=== PATIENT | female | born 1940 | race Caucasian/White ===

== ENCOUNTER 2017-09-27 17:21 | Inpatient (IN) | payer MEDICARE, OTHER ==
[2017-09-27] MEDS ORDERED: FENTANYL CITRATE INJ/PF 100 MCG/2 ML AMPUL IV ONE ×2 (17:46→18:57)
--- NOTE | 2017-09-27 17:46 | ER Document Report ---
ED Hip Pain/Injury - General TRAVEL OUTSIDE OF THE [place] IN LAST 30 DAYS: No <SHELIA JACKSON - Last Filed: 09/27/17 17:52> - General Mode of Arrival: Medic Information source: Patient, Emergency Med Personnel, [facility] Records <FOZIA BRADSHAW - Last Filed: 09/27/17 19:53> - General Chief Complaint: Hip Injury Stated Complaint: LEFT HIP PAIN Time Seen by Provider: 09/27/17 17:34 Notes: 77-year-old female patient was brought emergently by EMS after suffering a fall at home. She reports she was in her kitchen when she lost her balance and fell backwards landing on her left side injuring her left hip, her left elbow, and striking back of head. There is no loss of consciousness. There is no pain in the head or the neck. (AUGUSTINEFOZIA Oshea) - Related Data Allergies/Adverse Reactions: acetaminophen [From Tylox] Adverse Reaction (Verified 11/12/10 10:26) GI upset oxycodone HCl [From Tylox] Adverse Reaction (Verified 11/12/10 10:26) GI upset bandaids Allergy (Severe, Uncoded 12/11/10 12:30) skin rash adhesives Allergy (Intermediate, Uncoded 01/15/11 09:23) Past Medical History - Past Medical History Cardiac Medical History: Reports: Hx Hypertension - ON MEDS Pulmonary Medical History: Reports: Hx Pneumonia - hx of Musculoskeletal Medical History: 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 Past Surgical History: Reports: Hx Cholecystectomy, Hx Tubal Ligation - Immunizations Hx Diphtheria, Pertussis, Tetanus Vaccination: No <SHELIA JACKSON - Last Filed: 09/27/17 17:52> - General Information source: Patient, Emergency Med Personnel, [facility] Records - Social History Smoking Status: Never Smoker Cigarette use (# per day): No Chew tobacco use (# tins/day): No Smoking Education Provided: No Frequency of alcohol use: None Drug Abuse: None Occupation: Retired Lives with: Family Family History: Reviewed & Not Pertinent - Past Medical History Cardiac Medical History: Denies: Hx Heart Attack Neurological Medical History: Reports: Other - Essential tremor Endocrine Medical History: Reports: Hx Diabetes Mellitus Type 2 Renal/ Medical History: Reports: None GI Medical History: Reports: None Psychiatric Medical History: Reports: None Traumatic Medical History: Reports: Hx Fractures - Right femur Past Surgical History: Reports: Hx Orthopedic Surgery - Right femur ORIF <FOZIA BRADSHAW - Last Filed: 09/27/17 19:53> Review of Systems - Review of Systems Constitutional: No symptoms reported EENT: No symptoms reported Cardiovascular: No symptoms reported Respiratory: No symptoms reported Gastrointestinal: No symptoms reported Genitourinary: No symptoms reported Female Genitourinary: Post menopausal Musculoskeletal: Joint pain Skin: No symptoms reported Hematologic/Lymphatic: No symptoms reported Neurological/Psychological: Tremor <FOZIA BRADSHAW - Last Filed: 09/27/17 19:53> Physical Exam <MANUELROSALEESHELIA - Last Filed: 09/27/17 17:52> - Vital signs Interpretation: Normal - General General appearance: Alert - HEENT Head: Normocephalic, Atraumatic Eyes: Normal Pupils: PERRL Mouth/Lips: Other - Edentulous Neck: Normal - Nontender, Supple - Respiratory Respiratory status: No respiratory distress Breath sounds: Normal - Cardiovascular Rhythm: Regular Heart sounds: Normal auscultation Murmur: No - Abdominal Inspection: Normal Bowel sounds: Normal Tenderness: Nontender - Back Back: Normal - Extremities General upper extremity: Other - The left elbow has tenderness to the radial head. General lower extremity: Other - The left hip region is very tender to palpate. Patient is in a pelvic sling in the lower extremities are somewhat immobilized. - Neurological Neuro grossly intact: Yes - Psychological Associated symptoms: Normal affect, Normal mood - Skin Skin Temperature: Warm Skin Moisture: Dry Skin Color: Normal <FOZIA BRADSHAW - Last Filed: 09/27/17 19:53> - Vital signs Vitals: Resp Pulse Ox 11 L 93 09/27/17 17:42 09/27/17 17:42 - Neurological Notes: Patient has mild essential tremor (FOZIA BRADSHAW) Course <MANUELROSALEESHELIA - Last Filed: 09/27/17 17:52> - Diagnostic Test Radiology reviewed: Image reviewed, Reports reviewed - Left elbow show small joint effusion without fracture. Left hip shows low intertrochanteric fracture. - Consults Dr. Fermin Consulted provider: will see as inpatient Dr Cardenas Time consulted: 19:35 Consulted provider: will come to ER <FOZIA BRADSHAW - Last Filed: 09/27/17 19:53> - Re-evaluation Re-evalutation: 09/27/17 19:52 Patient does not seem to be getting a lot of pain relief with the dosing of fentanyl, so we will change to small doses of Dilaudid. (FOZIA BRADSHAW) - Vital Signs Vital signs: Temp Pulse Resp BP Pulse Ox 97.9 F 15 170/63 H 99 09/27/17 17:43 09/27/17 19:01 09/27/17 19:01 09/27/17 19:01 Discharge <SHELIA JACKSON - Last Filed: 09/27/17 17:52> - Discharge Admitting Provider: Hospitalist Unit Admitted: Telemetry <FOZIA BRADSHAW - Last Filed: 09/27/17 19:53> - Discharge Clinical Impression: Hip fracture Qualifiers: Encounter type: initial encounter Fracture type: closed Laterality: left Qualified Code(s): S72.002A - Fracture of unspecified part of neck of left femur , initial encounter for closed fracture Sprain of elbow, left Qualifiers: Encounter type: initial encounter Qualified Code(s): S53.402A - Unspecified sprain of left elbow, initial encounter Condition: Stable Disposition: ADMITTED INPATIENT Scribe Attestation: 09/27/17 18:35 I personally performed the services described in the documentation, reviewed and edited the documentation which was dictated to the scribe in my presence, and it accurately records my words and actions. (FOZIA BRADSHAW)
--- NOTE | 2017-09-27 19:04 | RADIOLOGY REPORT (SQ) ---
EXAM DESCRIPTION: ELBOW LEFT OVER 2 VIEWS COMPLETED DATE/TIME: 09/27/2017 6:55 pm REASON FOR STUDY: Fall, left hip and left elbow pain COMPARISON: None. NUMBER OF VIEWS: Four views. TECHNIQUE: AP, lateral, and both oblique radiographic images acquired of the left elbow. LIMITATIONS: None. FINDINGS: MINERALIZATION: Osteopenia. BONES: No acute fracture or dislocation. No worrisome bone lesions. JOINT: There is a small joint effusion. SOFT TISSUES: No soft tissue swelling. No foreign body. OTHER: No other significant finding. IMPRESSION: Small joint effusion. No fracture is seen. TECHNICAL DOCUMENTATION: JOB ID: [id number] [employer]- All Rights Reserved Reading location - IP/workstation name: [email or web address]
--- NOTE | 2017-09-27 19:12 | RADIOLOGY REPORT (SQ) ---
EXAM DESCRIPTION: HIP LEFT AP/LATERAL COMPLETED DATE/TIME: 09/27/2017 6:55 pm REASON FOR STUDY: Fall, left hip and left elbow pain COMPARISON: None. NUMBER OF VIEWS: Two views. TECHNIQUE: AP pelvis and additional frog-leg view of the left hip. LIMITATIONS: None. FINDINGS: MINERALIZATION: Normal. LEFT HIP: Low intertrochanteric fracture of the left femur. RIGHT HIP: No fracture or dislocation. No worrisome bone lesions. PUBIS AND ISCHIUM: No fracture. PELVIS: No fracture. SACRUM: No fracture or dislocation. No worrisome bone lesions. LOWER LUMBAR SPINE: No fracture or dislocation. No worrisome bone lesions. No significant disc disea se. SOFT TISSUES: No findings. OTHER: No other significant finding. IMPRESSION: Left hip fracture. TECHNICAL DOCUMENTATION: JOB ID: [id number] [employer]- All Rights Reserved Reading location - IP/workstation name: [email or web address]
[2017-09-27] MEDS ORDERED: IPRATROPIUM/ALBUTEROL 0.5-2.5 MG/3 ML AMPUL NEB PRN (19:39)
[2017-09-27] MEDS ORDERED: DEXTROSE 50%-WATER 25 GM/50 ML DISP.SYRIN IV PRN ×2 (19:39)
[2017-09-27] MEDS ORDERED: DEXTROSE 40% GEL 15 GM TUBE PO PRN ×2 (19:39)
[2017-09-27] MEDS ORDERED: MAG HYDROX/AL HYDROX/SIMETH SUSP 30 ML UDCUP PO PRN (19:39)
[2017-09-27] MEDS ORDERED: GLUCAGON,HUMAN RECOMB 1 MG INJ IM PRN (19:39)
[2017-09-27] MEDS ORDERED: ACETAMINOPHEN 325 MG TABLET PO PRN (19:39)
[2017-09-27] MEDS ORDERED: FENTANYL CITRATE INJ/PF 100 MCG/2 ML AMPUL IV PRN (19:39)
[2017-09-27] MEDS ORDERED: MAGNESIUM HYDROXIDE SUSP 30 ML UDCUP PO PRN (19:39)
[2017-09-27] MEDS ORDERED: INSULIN LISPRO 100 UNIT/ML 3 ML VIAL SUBCUT PRN (19:39)
[2017-09-27] MEDS ORDERED: NORMAL SALINE 1000 ML 1,000 ML IV SCH (19:45)
[2017-09-27] MEDS ORDERED: HYDROMORPHONE HCL INJ/PF 2 MG/ML AMPULE IV ONE (19:51)
[2017-09-27] MEDS ORDERED: HYDRALAZINE HCL INJ/PF 20 MG/1 ML SDV IV PRN (19:57)
[2017-09-27 20:05] LABS: APPEARANCE,URINE CLEAR; BILIRUBIN,URINE NEGATIVE (NEGATIVE); COLOR,URINE YELLOW; GLUCOSE, URINE NEGATIVE (NEGATIVE); KETONES,URINE NEGATIVE (NEGATIVE); LEUKOCYTE ESTERASE,URINE NEGATIVE (NEGATIVE); NITRITE,URINE NEGATIVE (NEGATIVE); PROTEIN,URINE NEGATIVE (NEGATIVE); URINE SPECIFIC GRAVITY 1.015
[2017-09-27] MEDS ORDERED: LOSARTAN POTASSIUM 50 MG TABLET PO SCH (20:30)
[2017-09-27 20:45] LABS: HEMATOCRIT 39.5 % (36.0-47.0); HEMOGLOBIN 13.2 g/dL (12.0-15.5); MEAN CORPUSCULAR HEMOGLOBIN 32.3 pg (27.0-33.4); MEAN CORPUSCULAR HGB CONC 33.5 g/dL (32.0-36.0); MEAN CORPUSCULAR VOLUME 97 fl (80-97); PLATELET COUNT 270 10^3/uL (150-450); RED BLOOD COUNT 4.09 10^6/uL (3.72-5.28); RED CELL DISTRIBUTION WIDTH 14.3 % (11.5-14.0); WHITE BLOOD COUNT 20.1 10^3/uL (4.0-10.5)
[2017-09-27 20:47] LABS: INTERNATIONAL RATION (INR) 0.95; PROTHROMBIN TIME 13.1 SEC (11.4-15.4)
[2017-09-27 20:57] LABS: ALANINE AMINOTRANSFERASE 27 U/L (9-52); ALBUMIN 3.3 g/dL (3.5-5.0); ALKALINE PHOSPHATASE 160 U/L (38-126); ANION GAP 12 (5-19); ASPARTATE AMINO TRANSFERASE 29 U/L (14-36); BILIRUBIN,DIRECT 0.4 mg/dL (0.0-0.4); BILIRUBIN,TOTAL 0.4 mg/dL (0.2-1.3); BLOOD UREA NITROGEN 16 mg/dL (7-20); CALCIUM 8.7 mg/dL (8.4-10.2); CARBON DIOXIDE 25 mmol/L (22-30); CHLORIDE 101 mmol/L (98-107); CREATINE KINASE 50 U/L (30-135); GLUCOSE 122 mg/dL (75-110); POTASSIUM 4.9 mmol/L (3.6-5.0); SODIUM 138.4 mmol/L (137-145); TOTAL PROTEIN 6.5 g/dL (6.3-8.2)
[2017-09-27 21:02] LABS: ABSOLUTE MONOCYTES # (MANUAL) 0.8 10^3/uL (0.1-1.4); ABSOLUTE NEUTROPHILS# (MANUAL) 18.3 10^3/uL (1.7-8.2); BASOPHILS % (MANUAL) 0 % (0-2); EOSINOPHILS % (MANUAL) 0 % (0-6); LYMPHOCYTES % (MANUAL) 5 % (13-45); MONOCYTES % (MANUAL) 4 % (3-13); SEGMENTED NEUTROPHILS % (MAN) 91 % (42-78); TOTAL CELLS COUNTED 100
[2017-09-27 21:04] LABS: TEAR DROP CELLS SLIGHT
[2017-09-27 21:05] LABS: ANISOCYTOSIS SLIGHT; OVALOCYTES SLIGHT; PLATELET COMMENT ADEQUATE; POIKILOCYTOSIS SLIGHT
[2017-09-27] MEDS: INSULIN GLARGINE,HUM.REC.ANLOG 300 UNIT/3 ML INSULN.PEN SUBCUT SCH (22:29)
[2017-09-27] MEDS: METOPROLOL TARTRATE 50 MG TABLET PO SCH (22:30)
[2017-09-27] MEDS: HEPARIN SOD (PORCINE) 5,000 UNIT/ML 1 ML SYRINGE SUBCUT SCH (22:30)
[2017-09-28] MEDS: KETOROLAC TROMETHAMINE INJ/PF 30 MG/1 ML SDV IV PRN ×2 (02:40→08:11)
[2017-09-28] MEDS: HEPARIN SOD (PORCINE) 5,000 UNIT/ML 1 ML SYRINGE SUBCUT SCH ×2 (05:39→13:25)
[2017-09-28] MEDS: LANSOPRAZOLE 15 MG TAB.RAP.DR PO SCH (05:39)
--- NOTE | 2017-09-28 07:24 | PDOC H&P ---
History of Present Illness Admission Date/PCP: 09/27/17 19:49 OG CHAMPION MD Patient complains of: Left hip pain History of Present Illness: NICKI ROWE is a 77 year old female with a past medical history of diabetes, essential tremor, hypertension and GERD. She presents after a loss of balance in the kitchen with fall upon her left side resulting in pain. She admits striking her head but no loss of consciousness, denies precipitating factors, new medications and otherwise feels well. In the emergency room she is found to have a left-sided hip fracture, no evidence of head contusion or concussion. She is referred to the hospitalist for admission. Patient has some gait instability at baseline requiring a walker after a remote right sided hip fracture complicated by MRSA. She denies shortness of breath or chest pain with activity, she has moderate risk for surgery however I do not find any modifiable risk factors preventing immediate OR intervention. Past Medical History Cardiac Medical History: Reports: Hypertension - ON MEDS Denies: Coronary Artery Disease, Myocardial Infarction Pulmonary Medical History: Reports: Pneumonia - hx of Denies: Asthma, Bronchitis, Chronic Obstructive Pulmonary Disease (COPD), Tuberculosis Neurological Medical History: Reports: Other - Essential tremor Denies: Seizures Endocrine Medical History: Reports: Diabetes Mellitus Type 2 Renal/ Medical History: Reports: None GI Medical History: Reports: None Denies: Hepatitis, Hiatal Hernia Musculoskeltal Medical History: Reports: Arthritis - lt knee Psychiatric Medical History: Reports: None Hematology: Denies: Anemia, Sickle Cell Disease Past Surgical History Past Surgical History: Reports: Cholecystectomy, Orthopedic Surgery - Right femur ORIF, Tubal Ligation Denies: Amputation, Hysterectomy, Mastectomy, Pacemaker Social History Information Source: Patient, [facility] Records Lives with: Family Smoking Status: Never Smoker Frequency of Alcohol Use: None Hx Recreational Drug Use: No Drugs: None Hx Prescription Drug Abuse: Yes - Advance Directive Resuscitation Status: Full Code Family History Family History: Arthritis Parental Family History Reviewed: Yes Children Family History Reviewed: Yes Sibling(s) Family History Reviewed.: Yes Medication/Allergy Home Medications: Insulin Glargine,Hum.rec.anlog [Lantus Insulin 100 Unit/1 ml 10 ml] See Protocol SQ DAILYP PRN 09/27/17 Losartan Potassium [Cozaar 50 mg Tablet] 50 mg PO DAILY 09/27/17 Metoprolol Succinate [Toprol Xl 25 mg Tab.sr] 25 mg PO DAILY 09/27/17 Omeprazole 40 mg PO DAILY 09/27/17 Primidone [Mysoline 50 mg Tablet] 50 mg PO BID 09/27/17 Tramadol HCl [Ultram 50 mg Tablet] 50 mg PO BID 09/27/17 Allergies/Adverse Reactions: acetaminophen [From Tylox] Adverse Reaction (Verified 11/12/10 10:26) GI upset oxycodone HCl [From Tylox] Adverse Reaction (Verified 11/12/10 10:26) GI upset bandaids Allergy (Severe, Uncoded 12/11/10 12:30) skin rash adhesives Allergy (Intermediate, Uncoded 01/15/11 09:23) Review of Systems Constitutional: ABSENT: chills, fever(s), headache(s), weight gain, weight loss Eyes: ABSENT: visual disturbances Ears: ABSENT: hearing changes Cardiovascular: ABSENT: chest pain, dyspnea on exertion, edema, orthropnea, palpitations Respiratory: ABSENT: cough, hemoptysis Gastrointestinal: ABSENT: abdominal pain, constipation, diarrhea, hematemesis, hematochezia, nausea, vomiting Genitourinary: ABSENT: dysuria, hematuria Musculoskeletal: ABSENT: joint swelling Integumentary: ABSENT: rash, wounds Neurological: ABSENT: abnormal gait, abnormal speech, confusion, dizziness, focal weakness, syncope Psychiatric: ABSENT: anxiety, depression, homidical ideation, suicidal ideation Endocrine: ABSENT: cold intolerance, heat intolerance, polydipsia, polyuria Hematologic/Lymphatic: ABSENT: easy bleeding, easy bruising Physical Exam Vital Signs: Temp Pulse Resp BP Pulse Ox 98.9 F 7 L 143/66 H 100 09/28/17 05:01 09/28/17 05:01 09/28/17 05:01 09/28/17 05:01 Intake & Output 09/26/17 09/27/17 09/28/17 11:59 11:59 11:59 Output Total 150 Balance -150 General appearance: PRESENT: cooperative, mild distress, well-developed, well- nourished Head exam: PRESENT: atraumatic, normocephalic Eye exam: PRESENT: conjunctiva pink, EOMI, PERRLA. ABSENT: scleral icterus Ear exam: PRESENT: normal external ear exam Mouth exam: PRESENT: moist, tongue midline Neck exam: ABSENT: carotid bruit, JVD, lymphadenopathy, thyromegaly Respiratory exam: PRESENT: clear to auscultation ramila. ABSENT: rales, rhonchi, wheezes Cardiovascular exam: PRESENT: RRR. ABSENT: diastolic murmur, rubs, systolic murmur Pulses: PRESENT: normal dorsalis pedis pul Vascular exam: PRESENT: normal capillary refill GI/Abdominal exam: PRESENT: normal bowel sounds, soft. ABSENT: distended, guarding, mass, organolmegaly, rebound, tenderness Rectal exam: PRESENT: deferred Extremities exam: PRESENT: joint swelling, tenderness. ABSENT: calf tenderness , clubbing, full ROM, pedal edema Musculoskeletal exam: PRESENT: tenderness - Left hip pain with flexion. ABSENT : full ROM Neurological exam: PRESENT: alert, awake, oriented to person, oriented to place , oriented to time, oriented to situation, CN II-XII grossly intact. ABSENT: motor sensory deficit Psychiatric exam: PRESENT: appropriate affect, normal mood. ABSENT: homicidal ideation, suicidal ideation Skin exam: PRESENT: dry, intact, warm. ABSENT: cyanosis, rash Results Laboratory Results: 09/27/17 20:17 09/27/17 20:17 09/27/17 09/27/17 20:17 20:17 WBC 20.1 H RBC 4.09 Hgb 13.2 Hct 39.5 MCV 97 MCH 32.3 MCHC 33.5 RDW 14.3 H Plt Count 270 Seg Neutrophils % Not Reportable Lymphocytes % Not Reportable Monocytes % Not Reportable Eosinophils % Not Reportable Basophils % Not Reportable Absolute Neutrophils Not Reportable Absolute Lymphocytes Not Reportable Absolute Monocytes Not Reportable Absolute Eosinophils Not Reportable Absolute Basophils Not Reportable Sodium 138.4 Potassium 4.9 Chloride 101 Carbon Dioxide 25 Anion Gap 12 BUN 16 Creatinine 0.96 Est GFR ( Amer) > 60 Est GFR (Non-Af Amer) 57 L Glucose 122 H Calcium 8.7 Magnesium 1.9 Total Bilirubin 0.4 AST 29 ALT 27 Alkaline Phosphatase 160 H Total Protein 6.5 Albumin 3.3 L 09/27/17 09/27/17 20:17 20:17 Creatine Kinase 50 Troponin I < 0.012 Impressions: Elbow X-Ray 09/27/17 17:45 IMPRESSION: Small joint effusion. No fracture is seen. Hip X-Ray 09/27/17 17:45 IMPRESSION: Left hip fracture. Assessment & Plan - Diagnosis (1) Hip fracture Qualifiers: Encounter type: initial encounter Fracture type: closed Laterality: left Qualified Code(s): S72.002A - Fracture of unspecified part of neck of left femur, initial encounter for closed fracture Is this a current diagnosis for this admission?: Yes Plan: Moderate risk without immediate modifiable risk factors to prevent or delay OR intervention. Orthopedic surgery consulted. (2) Sprain of elbow, left Qualifiers: Encounter type: initial encounter Qualified Code(s): S53.402A - Unspecified sprain of left elbow, initial encounter Is this a current diagnosis for this admission?: Yes Plan: Without fracture, symptomatically management (3) Diabetes Is this a current diagnosis for this admission?: Yes Plan: Outpatient regiment with Humalog sliding scale coverage - Time Time Spent: 50 to 70 Minutes - Inpatient Certification Medical Necessity: Need Close Monitoring Due to Risk of Patient Decompensation
[2017-09-28 07:50] LABS: ABSOLUTE BASOPHILS # (AUTO) 0.1 10^3/uL (0.0-0.2); ABSOLUTE LYMPHOCYTES (AUTO) 1.5 10^3/uL (0.5-4.7); ABSOLUTE MONOCYTES (AUTO) 0.8 10^3/uL (0.1-1.4); BASOPHILS % (AUTO) 0.6 % (0-2); HEMOGLOBIN 12.8 g/dL (12.0-15.5); LYMPHOCYTES % (AUTO) 11.4 % (13-45); MEAN CORPUSCULAR HEMOGLOBIN 32.7 pg (27.0-33.4); MEAN CORPUSCULAR HGB CONC 33.7 g/dL (32.0-36.0); MEAN CORPUSCULAR VOLUME 97 fl (80-97); MONOCYTES % (AUTO) 6.1 % (3-13); PLATELET COUNT 250 10^3/uL (150-450); RED BLOOD COUNT 3.92 10^6/uL (3.72-5.28); RED CELL DISTRIBUTION WIDTH 14.3 % (11.5-14.0); SEGMENTED NEUTROPHILS % (AUTO) 81.9 % (42-78); TOTAL CELLS COUNTED % (AUTO) 100 %; WHITE BLOOD COUNT 13.5 10^3/uL (4.0-10.5)
[2017-09-28 08:40] LABS: ANION GAP 6 (5-19); BLOOD UREA NITROGEN 19 mg/dL (7-20); CALCIUM 8.1 mg/dL (8.4-10.2); CARBON DIOXIDE 30 mmol/L (22-30); CHLORIDE 103 mmol/L (98-107); GLUCOSE 152 mg/dL (75-110); POTASSIUM 5.5 mmol/L (3.6-5.0); SODIUM 138.7 mmol/L (137-145)
[2017-09-28] MEDS: METOPROLOL TARTRATE 50 MG TABLET PO SCH (09:24)
[2017-09-28] MEDS ORDERED: (PENDING PHARMACY ID) (Omeprazole [Prilosec 20 Mg Capsule] 20 MG) PO SCH (10:00)
[2017-09-28] MEDS ORDERED: POTASSIUM CHLORIDE 10 MEQ CAPSULE.ER PO SCH (10:00)
[2017-09-28] MEDS: DOCUSATE SODIUM 100 MG CAPSULE PO SCH ×2 (10:33→17:21)
[2017-09-28] MEDS: POLYETHYLENE GLYCOL 3350 POWDER 17 GM/1 PACKET PO SCH (10:33)
[2017-09-28] MEDS: LOSARTAN POTASSIUM 25 MG TABLET PO SCH ×2 (10:33→21:46)
[2017-09-28] MEDS: HYDROMORPHONE HCL INJ/PF 2 MG/ML AMPULE IV PRN ×2 (10:43→20:20)
[2017-09-28] MEDS ORDERED: CYCLOBENZAPRINE HCL 10 MG TABLET PO PRN (14:00)
--- NOTE | 2017-09-28 21:27 | PDOC PROGRESS REPORT ---
Subjective Progress Note for:: 09/28/17 Subjective:: 77-year-old female with a past medical history of diabetes mellitus, tremor, hypertension and GERD. States that she lost her balance while standing in her kitchen and fell on her left side. She does complain of head trauma during this but without any loss of consciousness. Denies presyncopal symptoms. Patient was found on x-ray to have a left hip fracture. Orthopedics has been consulted. Patient is currently being pain treated. Reason For Visit: HIP FX HTN DM Physical Exam Vital Signs: Temp Pulse Resp BP Pulse Ox 98.2 F 61 15 147/68 H 99 09/28/17 11:31 09/28/17 12:28 09/28/17 12:28 09/28/17 11:31 09/28/17 12:28 Intake & Output 09/27/17 09/28/17 09/29/17 06:59 06:59 06:59 Output Total 150 Balance -150 Weight 90.2 kg General appearance: PRESENT: mild distress, obese Head exam: PRESENT: atraumatic, normocephalic Eye exam: PRESENT: EOMI. ABSENT: conjunctival injection, nystagmus Ear exam: PRESENT: normal external ear exam. ABSENT: bleeding Mouth exam: PRESENT: moist. ABSENT: dry mucosa Neck exam: ABSENT: carotid bruit, tenderness, thyromegaly Respiratory exam: ABSENT: accessory muscle use, rales, rhonchi, stridor Cardiovascular exam: PRESENT: RRR, +S1, +S2. ABSENT: bradycardia Vascular exam: PRESENT: normal capillary refill. ABSENT: pallor GI/Abdominal exam: PRESENT: soft. ABSENT: ascites, mass, rigid, tenderness Extremities exam: ABSENT: calf tenderness, joint swelling Musculoskeletal exam: ABSENT: ambulatory, full ROM Neurological exam: PRESENT: alert, awake, oriented to person, oriented to place , oriented to time, oriented to situation Psychiatric exam: PRESENT: agitated Focused psych exam: ABSENT: catatonic, paranoid Skin exam: PRESENT: abrasion. ABSENT: mottled Results Laboratory Results: 09/28/17 07:19 09/27/17 09/27/17 09/28/17 20:17 20:17 07:19 WBC 20.1 H 13.5 H RBC 4.09 3.92 Hgb 13.2 12.8 Hct 39.5 38.0 MCV 97 97 MCH 32.3 32.7 MCHC 33.5 33.7 RDW 14.3 H 14.3 H Plt Count 270 250 Seg Neutrophils % Not Reportable 81.9 H Lymphocytes % Not Reportable 11.4 L Monocytes % Not Reportable 6.1 Eosinophils % Not Reportable 0.0 Basophils % Not Reportable 0.6 Absolute Neutrophils Not Reportable 11.0 H Absolute Lymphocytes Not Reportable 1.5 Absolute Monocytes Not Reportable 0.8 Absolute Eosinophils Not Reportable 0.0 Absolute Basophils Not Reportable 0.1 Sodium 138.4 Potassium 4.9 Chloride 101 Carbon Dioxide 25 Anion Gap 12 BUN 16 Creatinine 0.96 Est GFR ( Amer) > 60 Est GFR (Non-Af Amer) 57 L Glucose 122 H Calcium 8.7 Magnesium 1.9 Total Bilirubin 0.4 AST 29 ALT 27 Alkaline Phosphatase 160 H Total Protein 6.5 Albumin 3.3 L 09/28/17 07:39 WBC RBC Hgb Hct MCV MCH MCHC RDW Plt Count Seg Neutrophils % Lymphocytes % Monocytes % Eosinophils % Basophils % Absolute Neutrophils Absolute Lymphocytes Absolute Monocytes Absolute Eosinophils Absolute Basophils Sodium 138.7 Potassium 5.5 H Chloride 103 Carbon Dioxide 30 Anion Gap 6 BUN 19 Creatinine 1.17 Est GFR ( Amer) 55 L Est GFR (Non-Af Amer) 45 L Glucose 152 H Calcium 8.1 L Magnesium Total Bilirubin AST ALT Alkaline Phosphatase Total Protein Albumin 09/27/17 09/27/17 20:17 20:17 Creatine Kinase 50 Troponin I < 0.012 Impressions: Elbow X-Ray 09/27/17 17:45 IMPRESSION: Small joint effusion. No fracture is seen. Hip X-Ray 09/27/17 17:45 IMPRESSION: Left hip fracture. Assessment & Plan - Diagnosis (1) Hip fracture Qualifiers: Encounter type: initial encounter Fracture type: closed Laterality: left Qualified Code(s): S72.002A - Fracture of unspecified part of neck of left femur, initial encounter for closed fracture Is this a current diagnosis for this admission?: Yes Plan: Currently pain controled with Dilaudid and Tylenol. Pending orthopedics consult and their recommendations. No concerns for cardiac conditions that may inhibit current surgery. (2) Pain Is this a current diagnosis for this admission?: Yes Plan: Continue Dilaudid and Tylenol prn adding Tramadol prn for pain control. prior allergy to Oxycodone. (3) Hyperkalemia Is this a current diagnosis for this admission?: Yes Plan: Hold potassium supplementation from home. Recheck potassium today at 1400 hrs. continue IV fluid support. (4) Diabetes Is this a current diagnosis for this admission?: Yes Plan: continue current medications, Lantus and short acting insulin for diabetes. (5) Sprain of elbow, left Qualifiers: Encounter type: initial encounter Qualified Code(s): S53.402A - Unspecified sprain of left elbow, initial encounter Is this a current diagnosis for this admission?: Yes Plan: continue current pain medications listed above - Time Time Spent with patient: 15-24 minutes - Inpatient Certification Based on my medical assessment, after consideration of the patient's comorbidities, presenting symptoms, or acuity I expect that the services needed warrant INPATIENT care.: Yes I certify that my determination is in accordance with my understanding of Medicare's requirements for reasonable and necessary INPATIENT services [42 CFR 412.3e].: Yes Medical Necessity: Need Close Monitoring Due to Risk of Patient Decompensation
[2017-09-28] MEDS: INSULIN GLARGINE,HUM.REC.ANLOG 300 UNIT/3 ML INSULN.PEN SUBCUT SCH ×2 (21:59→22:00)
[2017-09-29] MEDS: RINGERS SOLUTION,LACTATED 1,000 ML IV PRN ×3 (00:46→22:48)
[2017-09-29] MEDS: HYDROMORPHONE HCL INJ/PF 2 MG/ML AMPULE IV PRN ×4 (00:46→20:58)
[2017-09-29] MEDS: LANSOPRAZOLE 15 MG TAB.RAP.DR PO SCH (05:14)
[2017-09-29 06:38] LABS: ABSOLUTE BASOPHILS # (AUTO) 0.1 10^3/uL (0.0-0.2); ABSOLUTE EOSINOPHILS # (AUTO) 0.2 10^3/uL (0.0-0.6); ABSOLUTE LYMPHOCYTES (AUTO) 1.9 10^3/uL (0.5-4.7); ABSOLUTE MONOCYTES (AUTO) 0.8 10^3/uL (0.1-1.4); BASOPHILS % (AUTO) 0.5 % (0-2); EOSINOPHILS % (AUTO) 1.7 % (0-6); HEMATOCRIT 35.6 % (36.0-47.0); HEMOGLOBIN 11.9 g/dL (12.0-15.5); LYMPHOCYTES % (AUTO) 19.5 % (13-45); MEAN CORPUSCULAR HGB CONC 33.5 g/dL (32.0-36.0); MEAN CORPUSCULAR VOLUME 99 fl (80-97); MONOCYTES % (AUTO) 7.9 % (3-13); PLATELET COUNT 217 10^3/uL (150-450); RED CELL DISTRIBUTION WIDTH 14.2 % (11.5-14.0); SEGMENTED NEUTROPHILS % (AUTO) 70.4 % (42-78); TOTAL CELLS COUNTED % (AUTO) 100 %; WHITE BLOOD COUNT 9.9 10^3/uL (4.0-10.5)
[2017-09-29 06:58] LABS: ALBUMIN 2.8 g/dL (3.5-5.0); ANION GAP 6 (5-19); BLOOD UREA NITROGEN 20 mg/dL (7-20); CALCIUM 8.2 mg/dL (8.4-10.2); CARBON DIOXIDE 26 mmol/L (22-30); CHLORIDE 106 mmol/L (98-107); GLUCOSE 111 mg/dL (75-110); PHOSPHORUS 3.7 mg/dL (2.5-4.5); POTASSIUM 5.3 mmol/L (3.6-5.0); SODIUM 137.5 mmol/L (137-145)
--- NOTE | 2017-09-29 07:31 | EKG REPORT ---
SEVERITY:- BORDERLINE ECG - A-FLUTTER/FIBRILLATION W/ COMPLETE AV BLOCK (NO) LIKELY NSR, BASELINE AREFACTS IN V1,V2, AND NOT FLUTTER WAVES,REPEAT EKG NEEDED.. : Confirmed by: Dharmesh Gibson MD 29-Sep-2017 07:31:12
[2017-09-29] MEDS: DOCUSATE SODIUM 100 MG CAPSULE PO SCH ×2 (09:08→18:31)
[2017-09-29] MEDS: LOSARTAN POTASSIUM 25 MG TABLET PO SCH ×2 (09:08→22:19)
[2017-09-29] MEDS: POLYETHYLENE GLYCOL 3350 POWDER 17 GM/1 PACKET PO SCH (09:09)
--- NOTE | 2017-09-29 11:01 | Physician Advisory Note ---
Physician Advisor ProgressNote .: Pursuant to the plan for [facility], I have reviewed the medical record for this patient. Physician Advisor Statement: Please consider documenting, if you agree: 1. Likely underlying dx causing the bradypnea & hypoxemia last PM? (Resp depression/adverse effect of opioid tx? CHARLES? ...) If Hgb continues to drop to 10.5-11.2 range or less, please consider dx of "Acute Blood Loss Anemia due to hip fx" (if felt to be due to that & not just IVF hemodilution). Thanks! CK
[2017-09-29] MEDS ORDERED: ONDANSETRON HCL INJ/PF 4 MG/2 ML SDV ONE ×2 (11:44→15:30)
[2017-09-29] MEDS ORDERED: ONDANSETRON HCL INJ/PF 4 MG/2 ML SDV IV PRN (11:47)
[2017-09-29] MEDS ORDERED: CEFAZOLIN 2 GM/D5W RTU 2 GM/50 ML RTUPB IV PRN (12:50)
[2017-09-29] MEDS ORDERED: CEFAZOLIN INJ 1 GM VIAL ONE (14:20)
[2017-09-29] MEDS ORDERED: FENTANYL CITRATE INJ/PF 100 MCG/2 ML AMPUL ONE ×2 (15:29→18:30)
[2017-09-29] MEDS ORDERED: MIDAZOLAM 2 MG/2 ML INJ ONE (15:29)
[2017-09-29] MEDS ORDERED: PROPOFOL INJ 200 MG/20 ML VIAL IV ONE (15:30)
[2017-09-29] MEDS ORDERED: EPHEDRINE SULFATE INJ 50 MG/1 ML AMPULE ONE (15:31)
[2017-09-29] MEDS ORDERED: BUPIVACAINE HCL/DEX-WATER/PF 15 MG/2 ML AMPULE ONE (15:32)
[2017-09-29] MEDS ORDERED: MEPERIDINE HCL/PF INJ 25 MG/1 ML DISP.SYRIN IV PRN (18:02)
[2017-09-29] MEDS ORDERED: PROMETHAZINE HCL INJ 25 MG/1 ML VIAL IV PRN ×2 (18:02)
[2017-09-29] MEDS ORDERED: DIPHENHYDRAMINE HCL 50 MG/ML VIAL IV PRN (18:02)
[2017-09-29] MEDS ORDERED: FENTANYL CITRATE INJ/PF 100 MCG/2 ML AMPUL IV PRN ×3 (18:02)
--- NOTE | 2017-09-29 18:11 | Operative Report ---
Operative Report DATE OF SURGERY: 09/29/17 PREOPERATIVE DIAGNOSIS: Displaced left intertrochanteric hip fracture POSTOPERATIVE DIAGNOSIS: Same OPERATION: Cephalo-medullary nail of the left hip fracture SURGEON: PHILIP VANN ANESTHESIA: GA TISSUE REMOVED OR ALTERED: None COMPLICATIONS: Same ESTIMATED BLOOD LOSS: 100 mL INTRAOPERATIVE FINDINGS: As above PROCEDURE: Patient was seen and evaluated in the preoperative holding area. The left lower extremity was initialized and marked. Patient received 2 g Ancef IV for bacterial prophylaxis. Patient was taken back to the operative room where transferred operative table. Patient was placed under spinal anesthesia. Once adequate anesthetized he was carefully placed onto the hip positioner the nonoperative lower extremity and bilateral upper extremities were carefully padded and the peroneal nerve was padded and on the nonoperative extremity. The operative extremity was placed in a traction along with adduction and internal rotation. A surgical team debriefing was performed ensuring all instrumentation was available, the surgical procedure was discussed with possible concerns reviewed. A timeout was done identifying correct patient, procedure and extremity everyone in attendance agree with this and verbalized no concerns. Reduction maneuver with the use of the hip traction table were done and C-arm fluoroscopy was used to confirm optimal reduction of the intertrochanteric fracture. Once this was confirmed the lower extremity was prepped with chlor prep and draped in a sterile fashion. At this point a small skin incision was made proximal to the greater trochanter. The guidewire was placed onto the tip of the trochanter advanced down to the level of the lesser trochanter. AP and lateral fluoroscopy was used to confirm appropriate placement of the guidewire. The skin incision was then extended and the underlying fascia opened up carefully to the tip of the greater trochanter. The entry reamer was then used and advanced to the level of the lesser trochanter. At this point Marquise short gamma nail was opened up and placed onto the aiming arm and advanced down the shaft of the femur. AP and lateral fluoroscopy was then used to confirm appropriate placement of the nail. Then turned my attention to the compression screw fixation in the femoral head. The trochars were advanced to the skin, a skin incision was made, careful dissection down to the fascia to the lateral femoral cortex was then partaken. The guidewire was then used and placed in the center center position with the tip apex distance less than 25 mm. Once this position was obtained the size of the compression screw was measured. AP and lateral fluoroscopy used to confirm appropriate placement of our guide wire. The step reamer was used to drill up through the femoral neck and head. I then carefully advanced the compression screw into position. AP and lateral fluoroscopy was done to confirm appropriate placement of the compression screw this was then locked into position proximally. The compression screw was then disengaged from its mounting device and the guidewire was removed. Lastly proceeded with locking of the nail distally. Using the aiming arm the trochars were advanced to the skin, a skin incision was made. Careful dissection done with a hemostat to the lateral cortex of the femur. I then drilled the near and far cortices. Measured the appropriate sized distal locking screw and secured it into position. At this point AP/lateral and oblique views of the proximal and distal aspect of the nail were taken confirming appropriate placement of the compression screw, distal locking screw and intramedullary nail. Once this was confirmed I proceeded with copious irrigation of the proximal and distal wounds. The deep tissues were closed with 0 Vicryl suture, 2-0 Vicryl for the dermis and guillermina for the skin. A dressing was placed. Sponge counts, instrument counts and needle counts were correct. Patient was then transferred from the operating room table to the operating room stretcher. The was no intraoperative complications patient tolerated procedure well was stable to PACU. Implants used: Marquise 11 x 380 mm 125 Short Gamma Nail with a 95 mm compression screw Postoperative plan: Patient will begin physical therapy on postop day #1 with Xarelto daily.
--- NOTE | 2017-09-29 18:19 | PDOC CONSULTATION ---
Consultation Consult Date: 09/28/17 Consult reason:: Left intertrochanteric hip fracture History of Present Illness Admission Date/PCP: 09/27/17 19:49 OG CHAMPION MD Patient complains of: Left hip pain and inability to weight-bear History of Present Illness: NICKI ROWE is a 77 year old female status post fall onto her left hip. She suffered instantaneous pain in the left groin and inability to weight-bear. Patient was brought by EMS to the hospital and diagnosed with a displaced left hip fracture. Patient was admitted to medicine and orthopedic consulted. Patient denies any other extremity injuries. Patient denies loss of consciousness. Has history of ORIF of her right femur from a previous fracture. Denies any numbness or tingling or paresthesias. Complains of acute pain in the left groin with any attempted range of motion and palpation. She has short and externally rotated lower extremity as well. Past Medical History Cardiac Medical History: Reports: Hypertension - ON MEDS Denies: Coronary Artery Disease, Myocardial Infarction Pulmonary Medical History: Reports: Pneumonia - hx of Denies: Asthma, Bronchitis, Chronic Obstructive Pulmonary Disease (COPD), Tuberculosis Neurological Medical History: Reports: Other - Essential tremor Denies: Seizures Endocrine Medical History: Reports: Diabetes Mellitus Type 2 Renal/ Medical History: Reports: None GI Medical History: Reports: None Denies: Hepatitis, Hiatal Hernia Musculoskeltal Medical History: Reports: Arthritis - lt knee Psychiatric Medical History: Reports: None, Depression Hematology: Denies: Anemia, Sickle Cell Disease Past Surgical History Past Surgical History: Reports: Cholecystectomy, Orthopedic Surgery - Right femur ORIF, Tubal Ligation Denies: Amputation, Hysterectomy, Mastectomy, Pacemaker Social History Lives with: Family Smoking Status: Former Smoker Frequency of Alcohol Use: None Hx Recreational Drug Use: No Drugs: None Hx Prescription Drug Abuse: No - Advance Directive Resuscitation Status: Full Code Family History Family History: Arthritis Parental Family History Reviewed: No Children Family History Reviewed: No Sibling(s) Family History Reviewed.: No Medication/Allergy Home Medications: Insulin Glargine,Hum.rec.anlog [Lantus Insulin 100 Unit/1 ml 10 ml] See Protocol SQ DAILYP PRN 09/27/17 Losartan Potassium [Cozaar 50 mg Tablet] 50 mg PO DAILY 09/27/17 Metoprolol Succinate [Toprol Xl 25 mg Tab.sr] 25 mg PO DAILY 09/27/17 Omeprazole 40 mg PO DAILY 09/27/17 Primidone [Mysoline 50 mg Tablet] 50 mg PO BID 09/27/17 Tramadol HCl [Ultram 50 mg Tablet] 50 mg PO BID 09/27/17 Allergies/Adverse Reactions: acetaminophen [From Tylox] Adverse Reaction (Verified 11/12/10 10:26) GI upset oxycodone HCl [From Tylox] Adverse Reaction (Verified 11/12/10 10:26) GI upset bandaids Allergy (Severe, Uncoded 12/11/10 12:30) skin rash adhesives Allergy (Intermediate, Uncoded 01/15/11 09:23) Review of Systems Constitutional: ABSENT: fever(s), headache(s), weight gain, weight loss Eyes: ABSENT: visual disturbances Ears: ABSENT: hearing changes Nose, Mouth, and Throat: ABSENT: mouth pain, sore throat Cardiovascular: ABSENT: chest pain, dyspnea on exertion, palpitations Gastrointestinal: ABSENT: nausea, vomiting Genitourinary: ABSENT: hematuria Musculoskeletal: PRESENT: as per HPI Integumentary: ABSENT: erythema, pruritus Neurological: ABSENT: syncope, vertigo Endocrine: ABSENT: cold intolerance, heat intolerance Hematologic/Lymphatic: ABSENT: lymphadenopathy Allergic/Immunologic: ABSENT: seasonal rhinorrhea Physical Exam Vital Signs: Temp Pulse Resp BP Pulse Ox 37.1 C 64 16 138/49 H 98 09/28/17 16:01 09/28/17 16:20 09/28/17 16:20 09/28/17 16:01 09/28/17 16:01 Intake & Output 09/27/17 09/28/17 09/29/17 06:59 06:59 06:59 Output Total 150 Balance -150 Weight 90.2 kg General appearance: PRESENT: no acute distress, obese Head exam: PRESENT: atraumatic, normocephalic Eye exam: PRESENT: EOMI, PERRLA. ABSENT: nystagmus Ear exam: PRESENT: normal external ear exam. ABSENT: bleeding Mouth exam: PRESENT: neck supple. ABSENT: laceration Neck exam: ABSENT: lymphadenopathy, tenderness, thyromegaly Respiratory exam: PRESENT: symmetrical, unlabored. ABSENT: accessory muscle use , chest wall tenderness, tachypnea Cardiovascular exam: PRESENT: RRR Pulses: PRESENT: normal dorsalis pedis pul Vascular exam: PRESENT: normal capillary refill GI/Abdominal exam: PRESENT: soft. ABSENT: guarding, rigid, tenderness Neurological exam: PRESENT: alert, awake, oriented to person, oriented to place , oriented to time Psychiatric exam: PRESENT: appropriate affect, normal mood. ABSENT: suicidal ideation Skin exam: PRESENT: intact. ABSENT: abrasion, erythema, skin tears Adult Front & Back Image: 1 - Left lower extremity is shortened and externally rotated. There is sensation to light touch distally with intact EHL and FHL as well as dorsalis pedis pulse. Tender palpation over the groin and pain with any attempted range of motion of her left hip. Results Laboratory Results: 09/28/17 07:19 09/28/17 14:50 09/27/17 09/27/17 09/28/17 20:17 20:17 07:19 WBC 20.1 H 13.5 H RBC 4.09 3.92 Hgb 13.2 12.8 Hct 39.5 38.0 MCV 97 97 MCH 32.3 32.7 MCHC 33.5 33.7 RDW 14.3 H 14.3 H Plt Count 270 250 Seg Neutrophils % Not Reportable 81.9 H Lymphocytes % Not Reportable 11.4 L Monocytes % Not Reportable 6.1 Eosinophils % Not Reportable 0.0 Basophils % Not Reportable 0.6 Absolute Neutrophils Not Reportable 11.0 H Absolute Lymphocytes Not Reportable 1.5 Absolute Monocytes Not Reportable 0.8 Absolute Eosinophils Not Reportable 0.0 Absolute Basophils Not Reportable 0.1 Sodium 138.4 Potassium 4.9 Chloride 101 Carbon Dioxide 25 Anion Gap 12 BUN 16 Creatinine 0.96 Est GFR ( Amer) > 60 Est GFR (Non-Af Amer) 57 L Glucose 122 H Calcium 8.7 Magnesium 1.9 Total Bilirubin 0.4 AST 29 ALT 27 Alkaline Phosphatase 160 H Total Protein 6.5 Albumin 3.3 L 09/28/17 09/28/17 07:39 14:50 WBC RBC Hgb Hct MCV MCH MCHC RDW Plt Count Seg Neutrophils % Lymphocytes % Monocytes % Eosinophils % Basophils % Absolute Neutrophils Absolute Lymphocytes Absolute Monocytes Absolute Eosinophils Absolute Basophils Sodium 138.7 Potassium 5.5 H 5.1 H Chloride 103 Carbon Dioxide 30 Anion Gap 6 BUN 19 Creatinine 1.17 Est GFR ( Amer) 55 L Est GFR (Non-Af Amer) 45 L Glucose 152 H Calcium 8.1 L Magnesium Total Bilirubin AST ALT Alkaline Phosphatase Total Protein Albumin 09/27/17 09/27/17 20:17 20:17 Creatine Kinase 50 Troponin I < 0.012 Impressions: Elbow X-Ray 09/27/17 17:45 IMPRESSION: Small joint effusion. No fracture is seen. Hip X-Ray 09/27/17 17:45 IMPRESSION: Left hip fracture. Status: Image reviewed by me Assessment & Plan - Diagnosis (1) Intertrochanteric fracture of left femur Qualifiers: Encounter type: initial encounter Fracture type: closed Fracture alignment: displaced Qualified Code(s): S72.142A - Displaced intertrochanteric fracture of left femur, initial encounter for closed fracture Is this a current diagnosis for this admission?: Yes Plan: 77-year-old female with left intertrochanteric hip fracture that is amenable to cephalo-medullary nailing. Risk and benefits were discussed with the patient and she agreed to consent proceed with surgery. Patient will be placed n.p.o. and started on fluids after midnight with anticipation of proceeding with surgery tomorrow barring any issues and clearance. Continue bedrest and pain control in the meantime.
[2017-09-29 20:23] LABS: ANION GAP 9 (5-19); BLOOD UREA NITROGEN 19 mg/dL (7-20); CALCIUM 8.3 mg/dL (8.4-10.2); CARBON DIOXIDE 24 mmol/L (22-30); CHLORIDE 104 mmol/L (98-107); GLUCOSE 140 mg/dL (75-110); POTASSIUM 5.2 mmol/L (3.6-5.0); SODIUM 136.9 mmol/L (137-145)
[2017-09-29] MEDS ORDERED: BISACODYL 10 MG SUPP.RECT PR PRN (20:23)
--- NOTE | 2017-09-29 20:31 | PDOC PROGRESS REPORT ---
Subjective Progress Note for:: 09/29/17 Subjective:: 77-year-old female with a past medical history of diabetes mellitus, tremor, hypertension and GERD. States that she lost her balance while standing in her kitchen and fell on her left side. She does complain of head trauma during this but without any loss of consciousness. Denies presyncopal symptoms. Hip xray consistent with left hip fracture. Cephalo-medullary nail of the left hip fracture performed today. Doing well in post op now. Reason For Visit: HIP FX HTN DM Physical Exam Vital Signs: Temp Pulse Resp BP Pulse Ox 97.5 F 83 16 144/55 H 96 09/29/17 18:15 09/29/17 19:15 09/29/17 19:15 09/29/17 19:15 09/29/17 19:15 Intake & Output 09/28/17 09/29/17 09/30/17 06:59 06:59 06:59 Intake Total 222 2350 Output Total 450 525 Balance -228 1825 Weight 86.4 kg General appearance: PRESENT: no acute distress, morbidly obese Head exam: PRESENT: atraumatic, normocephalic Eye exam: PRESENT: EOMI, PERRLA. ABSENT: conjunctival injection, nystagmus Ear exam: PRESENT: normal external ear exam. ABSENT: bleeding Mouth exam: PRESENT: moist. ABSENT: dry mucosa Neck exam: PRESENT: full ROM. ABSENT: carotid bruit, tenderness Respiratory exam: ABSENT: accessory muscle use, rales, rhonchi, wheezes Cardiovascular exam: PRESENT: RRR, +S1, +S2 Pulses: PRESENT: normal radial pulses, normal dorsalis pedis pul Vascular exam: PRESENT: normal capillary refill. ABSENT: pallor GI/Abdominal exam: PRESENT: soft. ABSENT: firm, mass, rigid, tenderness Extremities exam: ABSENT: calf tenderness, joint swelling Musculoskeletal exam: ABSENT: ambulatory, full ROM Neurological exam: PRESENT: alert, oriented to person, oriented to place, oriented to time, oriented to situation, CN II-XII grossly intact Psychiatric exam: ABSENT: agitated, anxious Focused psych exam: ABSENT: catatonic, paranoid Skin exam: ABSENT: abrasion, mottled Results Laboratory Results: 09/29/17 06:00 09/29/17 09/29/17 06:00 06:00 WBC 9.9 RBC 3.60 L Hgb 11.9 L Hct 35.6 L MCV 99 H MCH 33.0 MCHC 33.5 RDW 14.2 H Plt Count 217 Seg Neutrophils % 70.4 Lymphocytes % 19.5 Monocytes % 7.9 Eosinophils % 1.7 Basophils % 0.5 Absolute Neutrophils 7.0 Absolute Lymphocytes 1.9 Absolute Monocytes 0.8 Absolute Eosinophils 0.2 Absolute Basophils 0.1 Sodium 137.5 Potassium 5.3 H Chloride 106 Carbon Dioxide 26 Anion Gap 6 BUN 20 Creatinine 1.17 Est GFR ( Amer) 55 L Est GFR (Non-Af Amer) 45 L Glucose 111 H Calcium 8.2 L Phosphorus 3.7 Albumin 2.8 L 09/27/17 09/27/17 20:17 20:17 Creatine Kinase 50 Troponin I < 0.012 Impressions: Elbow X-Ray 09/27/17 17:45 IMPRESSION: Small joint effusion. No fracture is seen. Hip X-Ray 09/27/17 17:45 IMPRESSION: Left hip fracture. Assessment & Plan - Diagnosis (1) Hip fracture Qualifiers: Encounter type: initial encounter Fracture type: closed Laterality: left Qualified Code(s): S72.002A - Fracture of unspecified part of neck of left femur, initial encounter for closed fracture Is this a current diagnosis for this admission?: Yes Plan: now s/p Cephalo-medullary nail of the left hip fracture performed today. continue prn pain medication. pt per surgical teams recommendations (2) Pain Is this a current diagnosis for this admission?: Yes Plan: continue prn pain medication. (3) Hyperkalemia Is this a current diagnosis for this admission?: Yes Plan: giving lactulose for constipation, continue to monitor potassium level. (4) Diabetes Is this a current diagnosis for this admission?: Yes Plan: continue current diabetes medications (5) Sprain of elbow, left Qualifiers: Encounter type: initial encounter Qualified Code(s): S53.402A - Unspecified sprain of left elbow, initial encounter Is this a current diagnosis for this admission?: Yes Plan: continue prn pain medications - Time Time Spent with patient: 15-24 minutes - Inpatient Certification Based on my medical assessment, after consideration of the patient's comorbidities, presenting symptoms, or acuity I expect that the services needed warrant INPATIENT care.: Yes I certify that my determination is in accordance with my understanding of Medicare's requirements for reasonable and necessary INPATIENT services [42 CFR 412.3e].: Yes Medical Necessity: Need Close Monitoring Due to Risk of Patient Decompensation
[2017-09-29] MEDS ORDERED: LACTULOSE SYRUP 20 GM/30 ML UDCUP PO ONE (21:00)
--- NOTE | 2017-09-29 21:10 | EKG REPORT ---
SEVERITY:- NORMAL ECG - SINUS RHYTHM : Confirmed by: Dharmesh Gibson MD 29-Sep-2017 21:10:17
[2017-09-29] MEDS: INSULIN GLARGINE,HUM.REC.ANLOG 300 UNIT/3 ML INSULN.PEN SUBCUT SCH (22:20)
--- NOTE | 2017-09-29 22:51 | RADIOLOGY REPORT (SQ) ---
EXAM DESCRIPTION: NO CHG FLUORO; FEMUR LEFT COMPLETED DATE/TIME: 09/29/2017 6:31 pm REASON FOR STUDY: ORIF LT HIP NAILING COMPARISON: None. FLUOROSCOPY TIME: 1.5 minutes 5 Images saved to PACS LIMITATIONS: None. PROCEDURE: ORIF left hip fracture. FINDINGS: Images from fluoro document placement of a long medullary rhonda with a long cannulated screw through the femoral neck. IMPRESSION: ORIF left hip fracture. Refer to operative note for further information. COMMENT: PQRS 6045F: Fluoroscopy time of the procedure is documented in the report. TECHNICAL DOCUMENTATION: JOB ID: [id number] [employer]- All Rights Reserved Reading location - IP/workstation name: [email or web address]
--- NOTE | 2017-09-29 22:51 | RADIOLOGY REPORT (SQ) ---
EXAM DESCRIPTION: NO CHG FLUORO; FEMUR LEFT COMPLETED DATE/TIME: 09/29/2017 6:31 pm REASON FOR STUDY: ORIF LT HIP NAILING COMPARISON: None. FLUOROSCOPY TIME: 1.5 minutes 5 Images saved to PACS LIMITATIONS: None. PROCEDURE: ORIF left hip fracture. FINDINGS: Images from fluoro document placement of a long medullary rhonda with a long cannulated screw through the femoral neck. IMPRESSION: ORIF left hip fracture. Refer to operative note for further information. COMMENT: PQRS 6045F: Fluoroscopy time of the procedure is documented in the report. TECHNICAL DOCUMENTATION: JOB ID: [id number] [email or web address]- All Rights Reserved Reading location - IP/workstation name: [email or web address]
[2017-09-30] MEDS: HYDROMORPHONE HCL INJ/PF 2 MG/ML AMPULE IV PRN ×4 (03:21→21:19)
[2017-09-30] MEDS ORDERED: NA PHOS,M-B/NA PHOS,DI-BA (ADULT) 133 ML ENEMA PR ONE (05:00)
[2017-09-30 05:31] LABS: ABSOLUTE BASOPHILS # (AUTO) 0.1 10^3/uL (0.0-0.2); ABSOLUTE LYMPHOCYTES (AUTO) 0.9 10^3/uL (0.5-4.7); ABSOLUTE MONOCYTES (AUTO) 0.8 10^3/uL (0.1-1.4); ABSOLUTE NEUT (AUTO) 9.8 10^3/uL (1.7-8.2); BASOPHILS % (AUTO) 0.8 % (0-2); EOSINOPHILS % (AUTO) 0.1 % (0-6); HEMOGLOBIN 10.5 g/dL (12.0-15.5); LYMPHOCYTES % (AUTO) 7.5 % (13-45); MEAN CORPUSCULAR HEMOGLOBIN 32.7 pg (27.0-33.4); MEAN CORPUSCULAR HGB CONC 33.8 g/dL (32.0-36.0); MEAN CORPUSCULAR VOLUME 97 fl (80-97); MONOCYTES % (AUTO) 6.9 % (3-13); PLATELET COUNT 231 10^3/uL (150-450); RED CELL DISTRIBUTION WIDTH 13.9 % (11.5-14.0); SEGMENTED NEUTROPHILS % (AUTO) 84.7 % (42-78); TOTAL CELLS COUNTED % (AUTO) 100 %; WHITE BLOOD COUNT 11.6 10^3/uL (4.0-10.5)
[2017-09-30] MEDS: LANSOPRAZOLE 15 MG TAB.RAP.DR PO SCH (05:38)
[2017-09-30 05:41] LABS: ALBUMIN 2.4 g/dL (3.5-5.0); ANION GAP 7 (5-19); BLOOD UREA NITROGEN 16 mg/dL (7-20); CALCIUM 7.9 mg/dL (8.4-10.2); CARBON DIOXIDE 24 mmol/L (22-30); CHLORIDE 106 mmol/L (98-107); GLUCOSE 145 mg/dL (75-110); PHOSPHORUS 2.8 mg/dL (2.5-4.5); SODIUM 136.5 mmol/L (137-145)
[2017-09-30] MEDS ORDERED: LACTULOSE SYRUP 20 GM/30 ML UDCUP PR ONE (06:00)
[2017-09-30] MEDS ORDERED: LACTULOSE SYRUP 20 GM/30 ML UDCUP ONE (06:42)
[2017-09-30] MEDS: RINGERS SOLUTION,LACTATED 1,000 ML IV PRN ×2 (07:08→18:08)
[2017-09-30] MEDS: LOSARTAN POTASSIUM 25 MG TABLET PO SCH ×2 (09:35→22:44)
[2017-09-30] MEDS: DOCUSATE SODIUM 100 MG CAPSULE PO SCH ×2 (09:36→17:08)
[2017-09-30] MEDS: POLYETHYLENE GLYCOL 3350 POWDER 17 GM/1 PACKET PO SCH (09:36)
--- NOTE | 2017-09-30 17:17 | PDOC PROGRESS REPORT ---
Subjective Progress Note for:: 09/30/17 Subjective:: Patient having some postsurgical pain in the left hip. Participate with physical therapy today. No issues overnight. Reason For Visit: HIP FX HTN DM Physical Exam Vital Signs: Temp Pulse Resp BP Pulse Ox 36.9 C 79 18 139/55 H 90 L 09/30/17 11:29 09/30/17 13:46 09/30/17 11:29 09/30/17 11:29 09/30/17 11:29 Intake & Output 09/29/17 09/30/17 10/01/17 06:59 06:59 06:59 Intake Total 222 5117 366 Output Total 450 975 Balance -228 4142 366 Weight 86.4 kg 83.7 kg General appearance: PRESENT: no acute distress Adult Front & Back Image: 1 - Dressings are dry clean and intact. Patient is neurovascular intact distally. Results Laboratory Results: 09/30/17 05:10 09/30/17 05:10 09/29/17 09/30/17 09/30/17 19:55 05:10 05:10 WBC 11.6 H RBC 3.20 L Hgb 10.5 L Hct 31.0 L MCV 97 MCH 32.7 MCHC 33.8 RDW 13.9 Plt Count 231 Seg Neutrophils % 84.7 H Lymphocytes % 7.5 L Monocytes % 6.9 Eosinophils % 0.1 Basophils % 0.8 Absolute Neutrophils 9.8 H Absolute Lymphocytes 0.9 Absolute Monocytes 0.8 Absolute Eosinophils 0.0 Absolute Basophils 0.1 Sodium 136.9 L 136.5 L Potassium 5.2 H 5.0 Chloride 104 106 Carbon Dioxide 24 24 Anion Gap 9 7 BUN 19 16 Creatinine 0.92 0.87 Est GFR ( Amer) > 60 > 60 Est GFR (Non-Af Amer) > 60 > 60 Glucose 140 H 145 H Calcium 8.3 L 7.9 L Phosphorus 2.8 Albumin 2.4 L 09/27/17 09/27/17 20:17 20:17 Creatine Kinase 50 Troponin I < 0.012 Impressions: Elbow X-Ray 09/27/17 17:45 IMPRESSION: Small joint effusion. No fracture is seen. Hip X-Ray 09/27/17 17:45 IMPRESSION: Left hip fracture. Femur X-Ray 09/29/17 00:00 IMPRESSION: ORIF left hip fracture. Refer to operative note for further information. Fluoroscopy 09/29/17 00:00 IMPRESSION: ORIF left hip fracture. Refer to operative note for further information. Status: Image reviewed by me Assessment & Plan - Diagnosis (1) Intertrochanteric fracture of left femur Qualifiers: Qualified Code(s): S72.142A - Displaced intertrochanteric fracture of left femur, initial encounter for closed fracture Is this a current diagnosis for this admission?: Yes - Plan Summary Plan Summary: Patient is 77-year-old female POD #1 from cephalo-medullary nailing left hip fracture. Continue physical therapy Continue pain control Continue DVT prophylaxis Awaiting [facility] facility placement
--- NOTE | 2017-09-30 17:30 | PDOC PROGRESS REPORT ---
Subjective Progress Note for:: 09/30/17 - seen on rounds this afternoon Subjective:: states she's doing well besides the surgery. states left him hurts somewhat, 2/ 5 pain Reason For Visit: HIP FX HTN DM Physical Exam Vital Signs: Temp Pulse Resp BP Pulse Ox 98.5 F 79 18 139/55 H 90 L 09/30/17 11:29 09/30/17 13:46 09/30/17 11:29 09/30/17 11:29 09/30/17 11:29 Intake & Output 09/29/17 09/30/17 10/01/17 06:59 06:59 06:59 Intake Total 222 5117 366 Output Total 450 975 Balance -228 4142 366 Weight 190 lb 7.67 oz 184 lb 8.43 oz General appearance: PRESENT: no acute distress, well-developed, well-nourished Head exam: PRESENT: atraumatic, normocephalic Eye exam: PRESENT: EOMI, PERRLA. ABSENT: scleral icterus Ear exam: PRESENT: normal external ear exam Neck exam: ABSENT: tracheal deviation Respiratory exam: PRESENT: clear to auscultation ramila, symmetrical Cardiovascular exam: PRESENT: +S1, +S2 Pulses: PRESENT: +2 pedal pulses bilateral GI/Abdominal exam: PRESENT: normal bowel sounds, soft. ABSENT: tenderness Extremities exam: PRESENT: tenderness - left hip TTP- dressing noted- C/D/I, other - left LE- decreased ROM at the hip, sensation intact, distal pulses 2+ Neurological exam: PRESENT: alert, awake, oriented to person, oriented to time, oriented to situation, CN II-XII grossly intact Skin exam: PRESENT: dry, warm Results Laboratory Results: 09/30/17 05:10 09/30/17 05:10 09/29/17 09/30/17 09/30/17 19:55 05:10 05:10 WBC 11.6 H RBC 3.20 L Hgb 10.5 L Hct 31.0 L MCV 97 MCH 32.7 MCHC 33.8 RDW 13.9 Plt Count 231 Seg Neutrophils % 84.7 H Lymphocytes % 7.5 L Monocytes % 6.9 Eosinophils % 0.1 Basophils % 0.8 Absolute Neutrophils 9.8 H Absolute Lymphocytes 0.9 Absolute Monocytes 0.8 Absolute Eosinophils 0.0 Absolute Basophils 0.1 Sodium 136.9 L 136.5 L Potassium 5.2 H 5.0 Chloride 104 106 Carbon Dioxide 24 24 Anion Gap 9 7 BUN 19 16 Creatinine 0.92 0.87 Est GFR ( Amer) > 60 > 60 Est GFR (Non-Af Amer) > 60 > 60 Glucose 140 H 145 H Calcium 8.3 L 7.9 L Phosphorus 2.8 Albumin 2.4 L 09/27/17 09/27/17 20:17 20:17 Creatine Kinase 50 Troponin I < 0.012 Impressions: Elbow X-Ray 09/27/17 17:45 IMPRESSION: Small joint effusion. No fracture is seen. Hip X-Ray 09/27/17 17:45 IMPRESSION: Left hip fracture. Femur X-Ray 09/29/17 00:00 IMPRESSION: ORIF left hip fracture. Refer to operative note for further information. Fluoroscopy 09/29/17 00:00 IMPRESSION: ORIF left hip fracture. Refer to operative note for further information. Assessment & Plan - Diagnosis (1) Intertrochanteric fracture of left femur Qualifiers: Encounter type: initial encounter Fracture type: closed Fracture alignment: displaced Qualified Code(s): S72.142A - Displaced intertrochanteric fracture of left femur, initial encounter for closed fracture Is this a current diagnosis for this admission?: Yes Plan: POD#1- doing well- still has some pain but pain level is tolerable. c/w with current pain control. I reviewed her chart today and did not notice any DVT proph- spoke with Ortho- start on Xarelto 10mg QHS- 2 weeks. follow up with Ortho 2 weeks. she's wt PT/OT - they recommend rehab but patient and family declines- discussed risks and benefits but they do NOT want SNF rehab. will ask CM to order commode, walker and home PT/OT help. she will need dressing change on day 3 POD. also will need dressing changes daily with local wound care. She will be 50% weight bearing on left side. (2) Diabetes Is this a current diagnosis for this admission?: Yes Plan: continue current regimen with SSI (3) Hyperkalemia Is this a current diagnosis for this admission?: Yes Plan: resolved
[2017-09-30] MEDS: RIVAROXABAN 10 MG TABLET PO SCH (18:07)
[2017-09-30 18:11] LABS: APPEARANCE,URINE CLEAR; BILIRUBIN,URINE NEGATIVE (NEGATIVE); COLOR,URINE YELLOW; GLUCOSE, URINE NEGATIVE (NEGATIVE); KETONES,URINE NEGATIVE (NEGATIVE); LEUKOCYTE ESTERASE,URINE NEGATIVE (NEGATIVE); NITRITE,URINE NEGATIVE (NEGATIVE); PROTEIN,URINE NEGATIVE (NEGATIVE); URINE SPECIFIC GRAVITY 1.009; UROBILINOGEN,URINE NEGATIVE mg/dL (<2.0)
[2017-09-30 19:57] LABS: ANION GAP 8 (5-19); BLOOD UREA NITROGEN 14 mg/dL (7-20); CALCIUM 8.2 mg/dL (8.4-10.2); CARBON DIOXIDE 26 mmol/L (22-30); CHLORIDE 101 mmol/L (98-107); GLUCOSE 148 mg/dL (75-110); SODIUM 135.1 mmol/L (137-145)
[2017-09-30] MEDS: INSULIN GLARGINE,HUM.REC.ANLOG 300 UNIT/3 ML INSULN.PEN SUBCUT SCH (22:45)
[2017-10-01] MEDS: HYDROMORPHONE HCL INJ/PF 2 MG/ML AMPULE IV PRN (03:09)
[2017-10-01] MEDS: LANSOPRAZOLE 15 MG TAB.RAP.DR PO SCH (05:04)
[2017-10-01] MEDS ORDERED: ENOXAPARIN SODIUM INJ 40 MG/0.4 ML DISP.SYRIN SUBCUT SCH (10:00)
[2017-10-01] MEDS: POLYETHYLENE GLYCOL 3350 POWDER 17 GM/1 PACKET PO SCH (10:37)
[2017-10-01] MEDS: DOCUSATE SODIUM 100 MG CAPSULE PO SCH ×2 (10:37→17:22)
[2017-10-01] MEDS: LOSARTAN POTASSIUM 25 MG TABLET PO SCH (10:37)
[2017-10-01] MEDS: TRAMADOL HCL 50 MG TABLET PO PRN ×2 (10:37→17:22)
--- NOTE | 2017-10-01 17:06 | PDOC PROGRESS REPORT ---
Subjective Progress Note for:: 10/01/17 - seen on rounds this afternoon Subjective:: states she feels the same. still has some hip pain but better Reason For Visit: HIP FX HTN DM Physical Exam Vital Signs: Temp Pulse Resp BP Pulse Ox 98.0 F 88 20 144/60 H 92 10/01/17 11:36 10/01/17 14:00 10/01/17 11:36 10/01/17 11:36 10/01/17 11:36 Intake & Output 09/30/17 10/01/17 10/02/17 06:59 06:59 06:59 Intake Total 5117 2533 474 Output Total 975 700 400 Balance 4142 1833 74 Weight 184 lb 8.43 oz 212 lb 11.937 oz General appearance: PRESENT: no acute distress, obese Head exam: PRESENT: atraumatic, normocephalic Eye exam: PRESENT: EOMI, PERRLA. ABSENT: scleral icterus Ear exam: PRESENT: normal external ear exam Mouth exam: PRESENT: neck supple, tongue midline Neck exam: ABSENT: tracheal deviation Respiratory exam: PRESENT: clear to auscultation ramila, symmetrical Cardiovascular exam: PRESENT: +S1, +S2 Pulses: PRESENT: +2 pedal pulses bilateral GI/Abdominal exam: PRESENT: normal bowel sounds, soft. ABSENT: tenderness Extremities exam: PRESENT: tenderness - left hip tenderness at the surgical site - dressing noted- C/D/I- distal pulses 2+ Results Laboratory Results: 09/30/17 05:10 09/30/17 19:38 09/30/17 09/30/17 17:46 19:38 Sodium 135.1 L Potassium 5.0 Chloride 101 Carbon Dioxide 26 Anion Gap 8 BUN 14 Creatinine 0.79 Est GFR ( Amer) > 60 Est GFR (Non-Af Amer) > 60 Glucose 148 H Calcium 8.2 L Urine Color YELLOW Urine Appearance CLEAR Urine pH 5.0 Ur Specific [place] 1.009 Urine Protein NEGATIVE Urine Glucose (UA) NEGATIVE Urine Ketones NEGATIVE Urine Blood SMALL H Urine Nitrite NEGATIVE Ur Leukocyte Esterase NEGATIVE Urine WBC (Auto) 2 Urine RBC (Auto) 0 09/27/17 09/27/17 20:17 20:17 Creatine Kinase 50 Troponin I < 0.012 Impressions: Elbow X-Ray 09/27/17 17:45 IMPRESSION: Small joint effusion. No fracture is seen. Hip X-Ray 09/27/17 17:45 IMPRESSION: Left hip fracture. Femur X-Ray 09/29/17 00:00 IMPRESSION: ORIF left hip fracture. Refer to operative note for further information. Fluoroscopy 09/29/17 00:00 IMPRESSION: ORIF left hip fracture. Refer to operative note for further information. Assessment & Plan - Diagnosis (1) Intertrochanteric fracture of left femur Qualifiers: Encounter type: initial encounter Fracture type: closed Fracture alignment: displaced Qualified Code(s): S72.142A - Displaced intertrochanteric fracture of left femur, initial encounter for closed fracture Is this a current diagnosis for this admission?: Yes Plan: POD#2- doing well- still has some pain but pain level is tolerable. c/w with current pain control. spoke with Ortho- on Xarelto 10mg QHS- for 2 weeks. follow up with Ortho in 2 weeks. she's working wt PT/OT - they recommend rehab but patient and family declines- discussed risks and benefits but they do NOT want SNF rehab. asked CM to order commode, walker and home PT/OT help. she will need dressing change on day 3 POD. also will need dressing changes daily with local wound care. She will be 50% weight bearing on left side. HERMILO is working on home discharge but i was told that all her material may not be ready until tuesday- i have asked HERMILO to see of other options for possible d/c tomorrow. (2) Diabetes Is this a current diagnosis for this admission?: Yes (3) Hyperkalemia Is this a current diagnosis for this admission?: Yes - Plan Summary Plan Summary: cleared from medical and ortho perspective- but unfortunately patient declines rehab at this time so we trying to set up home help with the necessary equipment needed- might not happen till tuesday- CM is trying
[2017-10-01] MEDS: RIVAROXABAN 10 MG TABLET PO SCH (17:23)
--- NOTE | 2017-10-01 17:39 | PDOC PROGRESS REPORT ---
Subjective Progress Note for:: 10/01/17 Subjective:: Patient sleeping in bed. No issues overnight. Reason For Visit: HIP FX HTN DM Physical Exam Vital Signs: Temp Pulse Resp BP Pulse Ox 36.7 C 88 20 144/60 H 92 10/01/17 11:36 10/01/17 14:00 10/01/17 11:36 10/01/17 11:36 10/01/17 11:36 Intake & Output 09/30/17 10/01/17 10/02/17 06:59 06:59 06:59 Intake Total 5117 2533 474 Output Total 975 700 400 Balance 4142 1833 74 Weight 83.7 kg 96.5 kg Adult Front & Back Image: 1 - Mild serosanguineous drainage from the 3 dressings. Neurovascular intact distally. Soft calves depressible with negative Prabhjot. Results Laboratory Results: 09/30/17 05:10 09/30/17 19:38 09/30/17 09/30/17 17:46 19:38 Sodium 135.1 L Potassium 5.0 Chloride 101 Carbon Dioxide 26 Anion Gap 8 BUN 14 Creatinine 0.79 Est GFR ( Amer) > 60 Est GFR (Non-Af Amer) > 60 Glucose 148 H Calcium 8.2 L Urine Color YELLOW Urine Appearance CLEAR Urine pH 5.0 Ur Specific [place] 1.009 Urine Protein NEGATIVE Urine Glucose (UA) NEGATIVE Urine Ketones NEGATIVE Urine Blood SMALL H Urine Nitrite NEGATIVE Ur Leukocyte Esterase NEGATIVE Urine WBC (Auto) 2 Urine RBC (Auto) 0 09/27/17 09/27/17 20:17 20:17 Creatine Kinase 50 Troponin I < 0.012 Impressions: Elbow X-Ray 09/27/17 17:45 IMPRESSION: Small joint effusion. No fracture is seen. Hip X-Ray 09/27/17 17:45 IMPRESSION: Left hip fracture. Femur X-Ray 09/29/17 00:00 IMPRESSION: ORIF left hip fracture. Refer to operative note for further information. Fluoroscopy 09/29/17 00:00 IMPRESSION: ORIF left hip fracture. Refer to operative note for further information. Status: Image reviewed by me Assessment & Plan - Diagnosis (1) Intertrochanteric fracture of left femur Qualifiers: Encounter type: initial encounter Fracture type: closed Fracture alignment: displaced Qualified Code(s): S72.142A - Displaced intertrochanteric fracture of left femur, initial encounter for closed fracture Is this a current diagnosis for this admission?: Yes - Plan Summary Plan Summary: Patient is 77-year-old female POD #2 from cephalo-medullary nailing of left intertrochanteric hip fracture. Continue physical therapy Continue pain control Continue DVT prophylaxis Awaiting home health after discussing with the patient and family who are adamant in avoiding rehab/nursing facility. Discussed the postoperative care upon discharge with hospice service which we appreciate for managing the patient
--- NOTE | 2017-10-01 17:47 | PDOC DISCHARGE SUMMARY ---
General - Admit/Disc Date/PCP Admission Date/Primary Care Provider: 09/27/17 19:49 OG CHAMPION MD Discharge Date: 10/01/17 - evening - Discharge Diagnosis (1) Intertrochanteric fracture of left femur Is this a current diagnosis for this admission?: Yes (2) Diabetes Is this a current diagnosis for this admission?: Yes (3) Hyperkalemia Is this a current diagnosis for this admission?: Yes - Additional Information Resuscitation Status: Full Code Prescriptions: Ibuprofen [Motrin 600 mg Tablet] 600 mg PO Q6HP PRN #30 tablet PRN Reason: For Pain Rivaroxaban [Xarelto 10 mg Tablet] 10 mg PO WSUPPER #14 tablet Home Medications: Insulin Glargine,Hum.rec.anlog [Lantus Insulin 100 Unit/1 ml 10 ml] See Protocol SQ DAILYP PRN 09/27/17 Losartan Potassium [Cozaar 50 mg Tablet] 50 mg PO DAILY 09/27/17 Metoprolol Succinate [Toprol Xl 25 mg Tab.sr] 25 mg PO DAILY 09/27/17 Omeprazole 40 mg PO DAILY 09/27/17 Primidone [Mysoline 50 mg Tablet] 50 mg PO BID 09/27/17 Tramadol HCl [Ultram 50 mg Tablet] 50 mg PO BID 09/27/17 Ibuprofen [Motrin 600 mg Tablet] 600 mg PO Q6HP PRN #30 tablet 10/01/17 Rivaroxaban [Xarelto 10 mg Tablet] 10 mg PO WSUPPER #14 tablet 10/01/17 History of Present Illness History of Present Illness: NICKI ROWE is a 77 year old female admitted for left hip fracture. see H &P for full assessment and plan Hospital Course Hospital Course: after admission she pain control with medications. Ortho was consulted and she underwent surgical procedure on 09/29/17. she was cleared by ortho. we recommended STR but she declined and wanted to go home on home health and rehab. spoke with CM and it was setup. patient was discharged this evening with strict instructions follow up with ortho in 2 weeks start taking xarelto daily as discussed and prescribed- talk to ortho about when to stop follow up with your pcp in 1 week continue with PT therapy change dressing daily- clean with soap and water- keep area wrapped clean and dry Physical Exam Vital Signs: Temp Pulse Resp BP Pulse Ox 98.0 F 88 20 144/60 H 92 10/01/17 11:36 10/01/17 14:00 10/01/17 11:36 10/01/17 11:36 10/01/17 11:36 Intake & Output 09/30/17 10/01/17 10/02/17 06:59 06:59 06:59 Intake Total 5117 2533 474 Output Total 975 700 400 Balance 4142 1833 74 Weight 184 lb 8.43 oz 212 lb 11.937 oz General appearance: PRESENT: other - see physical exam from today's progress note Results Laboratory Results: 09/30/17 05:10 09/30/17 19:38 09/30/17 09/30/17 17:46 19:38 Sodium 135.1 L Potassium 5.0 Chloride 101 Carbon Dioxide 26 Anion Gap 8 BUN 14 Creatinine 0.79 Est GFR ( Amer) > 60 Est GFR (Non-Af Amer) > 60 Glucose 148 H Calcium 8.2 L Urine Color YELLOW Urine Appearance CLEAR Urine pH 5.0 Ur Specific [place] 1.009 Urine Protein NEGATIVE Urine Glucose (UA) NEGATIVE Urine Ketones NEGATIVE Urine Blood SMALL H Urine Nitrite NEGATIVE Ur Leukocyte Esterase NEGATIVE Urine WBC (Auto) 2 Urine RBC (Auto) 0 09/27/17 09/27/17 20:17 20:17 Creatine Kinase 50 Troponin I < 0.012 Impressions: Elbow X-Ray 09/27/17 17:45 IMPRESSION: Small joint effusion. No fracture is seen. Hip X-Ray 09/27/17 17:45 IMPRESSION: Left hip fracture. Femur X-Ray 09/29/17 00:00 IMPRESSION: ORIF left hip fracture. Refer to operative note for further information. Fluoroscopy 09/29/17 00:00 IMPRESSION: ORIF left hip fracture. Refer to operative note for further information. Qualifiers - * PATIENT BEING DISCHARGED WITH ANY OF THE FOLLOWING DIAGNOSIS: No Plan Time Spent: Greater than 30 Minutes
[2017-10-01 18:33] VITALS: BP 144/56
== END 2017-10-01 19:50 | disposition home health service (06) | DRG 482 ==
LOC: ER 17:21 → EEVIPCON 17:21 → EH 19:49 → 4W 09-28 08:05 → 4S 09-28 14:14
PROVIDERS: ADMIT Internal Medicine; ATTEND Internal Medicine
PROC: 0QS706Z Reposition Left Upper Femur with Intramedullary Internal Fixation Device, Open Approach (ICD-10-PCS; principal; 2017-09-29 14:30)
DX: S72.142A Displaced intertrochanteric fracture of left femur, initial encounter for closed fracture (principal); S53.402A Unspecified sprain of left elbow, initial encounter; E87.5 Hyperkalemia; K21.9 Gastro-esophageal reflux disease without esophagitis; G25.0 Essential tremor; E11.9 Type 2 diabetes mellitus without complications; I10 Essential (primary) hypertension; M19.90 Unspecified osteoarthritis, unspecified site; E66.01 Morbid (severe) obesity due to excess calories; W18.30XA Fall on same level, unspecified, initial encounter; Y92.000 Kitchen of unspecified non-institutional (private) residence as the place of occurrence of the external cause; Z90.49 Acquired absence of other specified parts of digestive tract; Z98.51 Tubal ligation status; Z79.4 Long term (current) use of insulin; Z88.6 Allergy status to analgesic agent
CPT/HCPCS: 01230; 36415; 80048; 80053; 80069; 81001; 82550; 82962; 83735; 84132; 84484; 85025; 85610; 93005; 93010; 94799; 96374; 96376; 99285; C1713; C1769; G8978-GP; G8979-GP; G8987-GO; G8988-GO; J0690; J1170; J1644; J1815; J1885; J2250; J2405; J2704; J3010; J3490; J7120

== ENCOUNTER 2017-10-04 11:37 | Inpatient (IN) | payer MEDICARE, OTHER ==
--- NOTE | 2017-10-04 12:21 | ER Document Report ---
ED General - General Mode of Arrival: Medic Information source: Patient TRAVEL OUTSIDE OF THE [place] IN LAST 30 DAYS: No <DONALD BALL - Last Filed: 10/04/17 16:15> <LINDARACHAELDARON - Last Filed: 10/04/17 16:17> - General Chief Complaint: Shortness Of Breath Stated Complaint: SHORTNESS OF BREATH Time Seen by Provider: 10/04/17 12:01 Notes: Patient is a 77-year-old female with HTN, diabetes type 2 presents to the emergency department complaining of shortness of breath. Patient states she presented to the emergency department on 09/29/2017 due to a fall and was diagnosed with left hip fracture. She states 2 days later she had an ORIF procedure performed by Dr. Fermin and discharged 3 days ago. She states she was hypoxic with exertion and when supine while here at [facility] and placed on oxygen prior to discharge but not sent home on oxygen further stating she never needed oxygen prior to the fall. Patient states her home health nurse called EMS after the patient had shortness of breath on exertion today. According to nurses note , patient was 88% on room air upon EMS arrival to patient's home. Patient is currently on 2L of oxygen and only complains of chest soreness which she attributes to positioning during surgery. Patient denies fevers or cough. Patient is currently on a 14 day supply of Xarelto. Patient also takes 20 mg of Lasix. Patients PCP is Dr. Almonte. (DONALD BALL) - Related Data Allergies/Adverse Reactions: acetaminophen [From Tylox] Adverse Reaction (Verified 11/12/10 10:26) GI upset oxycodone HCl [From Tylox] Adverse Reaction (Verified 11/12/10 10:26) GI upset bandaids Allergy (Severe, Uncoded 12/11/10 12:30) skin rash adhesives Allergy (Intermediate, Uncoded 01/15/11 09:23) Past Medical History - General Information source: Patient - Social History Smoking Status: Former Smoker - quit in her 30s Chew tobacco use (# tins/day): No Frequency of alcohol use: None Drug Abuse: None Family History: Arthritis Patient has suicidal ideation: No Patient has homicidal ideation: No - Past Medical History Cardiac Medical History: Reports: Hx Hypertension - ON MEDS Pulmonary Medical History: Reports: Hx Pneumonia - hx of Endocrine Medical History: Reports: Hx Diabetes Mellitus Type 2 Musculoskeletal Medical History: 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 Psychiatric Medical History: Reports: Hx Depression Traumatic Medical History: Reports: Hx Fractures - Right femur Past Surgical History: Reports: Hx Cholecystectomy, Hx Orthopedic Surgery - Right femur ORIF, Hx Tubal Ligation - Immunizations Hx Diphtheria, Pertussis, Tetanus Vaccination: No <DONALD BALL - Last Filed: 10/04/17 16:15> Review of Systems - Review of Systems Constitutional: No symptoms reported EENT: No symptoms reported Cardiovascular: Chest pain - chest soreness Respiratory: See HPI Gastrointestinal: No symptoms reported Genitourinary: No symptoms reported Female Genitourinary: No symptoms reported Musculoskeletal: No symptoms reported Skin: No symptoms reported Hematologic/Lymphatic: No symptoms reported Neurological/Psychological: No symptoms reported -: Yes All other systems reviewed and negative <DONALD BALL - Last Filed: 10/04/17 16:15> Physical Exam <DONALD BALL - Last Filed: 10/04/17 16:15> <DARON ANTONIO - Last Filed: 10/04/17 16:17> - Vital signs Vitals: Temp Resp 98.9 F 15 10/04/17 11:41 10/04/17 11:41 - Notes Notes: GENERAL: Alert, interacts well. No acute distress. HEAD: Normocephalic, atraumatic, Face is edematous. EYES: Pupils equal, round, and reactive to light. Extraocular movements intact. ENT: Oral mucosa moist, tongue midline. NECK: Full range of motion. Supple. Trachea midline. LUNGS: On 2L of oxygen, Crackles in the bilateral lung bases. No respiratory distress. HEART: Regular rate and rhythm. No murmurs, gallops, or rubs. ABDOMEN: Soft, non-tender. Non-distended. Bowel sounds present in all 4 quadrants. EXTREMITIES: Moves all 4 extremities spontaneously. 1+ pitting edema, radial and dorsalis pedis pulses 2/4 bilaterally. No cyanosis. NEUROLOGICAL: Alert and oriented x3. Normal speech. PSYCH: Normal affect, normal mood. SKIN: Warm, dry. Well approximated incisions on left leg consistent with hip replacements, small amount of fluid draining, no signs of infection. (DONALD BALL) Course - Laboratory Result Diagrams: 10/04/17 12:31 10/04/17 12:31 <DONALD BALL - Last Filed: 10/04/17 16:15> - Laboratory Result Diagrams: 10/04/17 12:31 10/04/17 12:31 <DARON ANTONIO - Last Filed: 10/04/17 16:17> - Re-evaluation Re-evalutation: 10/04/17 13:57 CBC shows slight leukocytosis 11.0, hemoglobin slightly low at 11.0 as well, sodium slightly low at 136.3, troponin detectable but not elevated at 0.013, proBNP elevated at 4040, urinalysis does not show any signs of any fraction, chest x-ray shows confluent density left base elevated hemidiaphragm versus subpulmonic effusion, EKG is nonischemic. Patient is doing well on 1 L via nasal cannula. Presentation is consistent with either fluid overload versus new onset congestive heart failure. No ongoing chest pain at this time. Patient was treated with Lasix, discussed with the hospitalist nurse practitioner Alivia Andrea who accepts the patient to her service on the telemetry care unit. (DARON ANTONIO) - Vital Signs Vital signs: Temp Pulse Resp BP Pulse Ox 98.9 F 17 132/69 H 96 10/04/17 11:43 10/04/17 14:02 10/04/17 14:02 10/04/17 14:02 - Laboratory Laboratory results interpreted by me: 10/04/17 10/04/17 10/04/17 12:31 12:31 12:31 WBC 11.0 H RBC 3.41 L Hgb 11.0 L Hct 33.1 L RDW 14.4 H Seg Neutrophils % 81.5 H Lymphocytes % 8.3 L Absolute Neutrophils 9.0 H Sodium 136.3 L Calcium 8.1 L Direct Bilirubin 0.5 H NT-Pro-B Natriuret Pep 4040 H Total Protein 5.3 L Albumin 2.6 L Urine Urobilinogen 10/04/17 13:29 WBC RBC Hgb Hct RDW Seg Neutrophils % Lymphocytes % Absolute Neutrophils Sodium Calcium Direct Bilirubin NT-Pro-B Natriuret Pep Total Protein Albumin Urine Urobilinogen 4.0 H - EKG Interpretation by Me Additional EKG results interpreted by me: 10/04/17 13:58 EKG was shows sinus rhythm at a rate of 67, normal axis, normal intervals, no ST segment elevations or depressions, no T wave inversions per my interpretation. (DARON ANTONIO) Discharge <DONALD BALL - Last Filed: 10/04/17 16:15> - Discharge Admitting Provider: Hospitalist - Alivia Andrea Unit Admitted: Telemetry <DARON ANTONIO - Last Filed: 10/04/17 16:17> - Discharge Clinical Impression: Hypoxemia Pulmonary edema Qualifiers: Chronicity: acute Qualified Code(s): J81.0 - Acute pulmonary edema Condition: Fair Disposition: ADMITTED INPATIENT Scribe Attestation: 10/04/17 16:17 I personally performed the services described in the documentation, reviewed and edited the documentation which was dictated to the scribe in my presence, and it accurately records my words and actions. (DARON ANTONIO) Scribe Documentation - Scribe Written by Scribe:: Sarah Patel, 10/04/2017 12:36 acting as scribe for :: Malik <DONALD BALL - Last Filed: 10/04/17 16:15>
[2017-10-04] MEDS ORDERED: FUROSEMIDE INJ/PF 40 MG/4 ML SDV IV ONE (12:25)
--- NOTE | 2017-10-04 12:30 | RADIOLOGY REPORT (SQ) ---
EXAM DESCRIPTION: CHEST SINGLE VIEW COMPLETED DATE/TIME: 10/04/2017 11:53 am REASON FOR STUDY: bed 7 db COMPARISON: 12/18/2010 EXAM PARAMETERS: NUMBER OF VIEWS: One view. TECHNIQUE: Single frontal radiographic view of the chest acquired. RADIATION DOSE: NA LIMITATIONS: None. FINDINGS: LUNGS AND PLEURA: Confluent density left base that may represent elevation of the left hem idiaphragm or possibly subpulmonic effusion. No infiltrates. No overt congestive heart failure. MEDIASTINUM AND HILAR STRUCTURES: No masses. Contour normal. HEART AND VASCULAR STRUCTURES: Heart normal in size. Normal vasculature. BONES: No acute findings. HARDWARE: None in the chest. OTHER: No other significant finding. IMPRESSION: Confluent density left base -elevated hemidiaphragm versus subpulmonic effusion. TECHNICAL DOCUMENTATION: JOB ID: [id number] [employer]- All Rights Reserved Reading location - IP/workstation name: [email or web address]
[2017-10-04 12:47] LABS: ABSOLUTE BASOPHILS # (AUTO) 0.1 10^3/uL (0.0-0.2); ABSOLUTE EOSINOPHILS # (AUTO) 0.3 10^3/uL (0.0-0.6); ABSOLUTE LYMPHOCYTES (AUTO) 0.9 10^3/uL (0.5-4.7); ABSOLUTE MONOCYTES (AUTO) 0.7 10^3/uL (0.1-1.4); BASOPHILS % (AUTO) 0.8 % (0-2); EOSINOPHILS % (AUTO) 2.9 % (0-6); HEMATOCRIT 33.1 % (36.0-47.0); LYMPHOCYTES % (AUTO) 8.3 % (13-45); MEAN CORPUSCULAR HEMOGLOBIN 32.2 pg (27.0-33.4); MEAN CORPUSCULAR HGB CONC 33.1 g/dL (32.0-36.0); MEAN CORPUSCULAR VOLUME 97 fl (80-97); MONOCYTES % (AUTO) 6.5 % (3-13); PLATELET COUNT 362 10^3/uL (150-450); RED BLOOD COUNT 3.41 10^6/uL (3.72-5.28); RED CELL DISTRIBUTION WIDTH 14.4 % (11.5-14.0); SEGMENTED NEUTROPHILS % (AUTO) 81.5 % (42-78); TOTAL CELLS COUNTED % (AUTO) 100 %
[2017-10-04 13:08] LABS: ALANINE AMINOTRANSFERASE 19 U/L (9-52); ALBUMIN 2.6 g/dL (3.5-5.0); ALKALINE PHOSPHATASE 111 U/L (38-126); ANION GAP 9 (5-19); ASPARTATE AMINO TRANSFERASE 18 U/L (14-36); BILIRUBIN,DIRECT 0.5 mg/dL (0.0-0.4); BLOOD UREA NITROGEN 20 mg/dL (7-20); CALCIUM 8.1 mg/dL (8.4-10.2); CARBON DIOXIDE 27 mmol/L (22-30); CHLORIDE 100 mmol/L (98-107); CREATINE KINASE 68 U/L (30-135); GLUCOSE 110 mg/dL (75-110); POTASSIUM 4.7 mmol/L (3.6-5.0); SODIUM 136.3 mmol/L (137-145); TOTAL PROTEIN 5.3 g/dL (6.3-8.2)
[2017-10-04 13:20] LABS: CREATINE KINASE MB 0.63 ng/mL (<4.55); TROPONIN I 0.013 ng/mL
[2017-10-04 13:44] LABS: APPEARANCE,URINE CLEAR; BILIRUBIN,URINE NEGATIVE (NEGATIVE); COLOR,URINE YELLOW; GLUCOSE, URINE NEGATIVE (NEGATIVE); KETONES,URINE NEGATIVE (NEGATIVE); LEUKOCYTE ESTERASE,URINE NEGATIVE (NEGATIVE); NITRITE,URINE NEGATIVE (NEGATIVE); PROTEIN,URINE NEGATIVE (NEGATIVE); URINE SPECIFIC GRAVITY 1.017
[2017-10-04] MEDS ORDERED: ONDANSETRON 4 MG TAB.RAPDIS PO PRN (14:26)
[2017-10-04] MEDS ORDERED: ACETAMINOPHEN 325 MG TABLET PO PRN (14:26)
--- NOTE | 2017-10-04 15:45 | RADIOLOGY REPORT (SQ) ---
EXAM DESCRIPTION: CT CHEST WITHOUT COMPLETED DATE/TIME: 10/04/2017 3:32 pm REASON FOR STUDY: L sided pleural effusion COMPARISON: Chest x-ray 10/04/2017 TECHNIQUE: CT scan performed of the chest without intravenous contrast. Images reviewed with lung, soft tissue and bone windows. Reconstructed coronal and sagittal MPR images reviewed. All images st ored on PACS. All CT scanners at this facility use dose modulation, iterative reconstruction, and/or weight based d osing when appropriate to reduce radiation dose to as low as reasonably achievable (ALARA). [facility]: Dose Right [facility]: CareDose [facility]: Dose Right [facility]: Teradose 4D [facility]: [employer] RADIATION DOSE: CT Rad equipment meets quality standard of care and radiation dose reduction techniq ues were employed. CTDIvol: 16.3 mGy. DLP: 581 mGy-cm. mGy. LIMITATIONS: No technical limitations. FINDINGS: LUNGS AND PLEURA: Small to moderate pleural effusions on each side. No pulmonary infiltra te or mass. There is mild scarring in the right base. HILAR AND MEDIASTINAL STRUCTURES: No identified masses or abnormal nodes. No obvious aneurysm. HEART AND VASCULAR STRUCTURES: No aneurysm. No pericardial effusion. UPPER ABDOMEN: No significant findings. Limited exam. THYROID AND OTHER SOFT TISSUES: No masses. No adenopathy. BONES: Scoliosis. Moderate anterior wedging of 1 of the lower thoracic vertebrae. This does not joan ear to be acute. HARDWARE: None in the chest. OTHER: No other significant findings. IMPRESSION: Bilateral pleural effusions. Osseous findings as described. TECHNICAL DOCUMENTATION: JOB ID: [id number] Quality ID # [id number]: Final reports with documentation of one or more dose reduction techniques (e.g., Au tomated exposure control, adjustment of the mA and/or kV according to patient size, use of iterative reconstruction technique) 2010 [employer]- All Rights Reserved Reading location - IP/workstation name: [email or web address]
[2017-10-04] MEDS ORDERED: FUROSEMIDE INJ/PF 20 MG/2 ML SDV IV ONE (18:50)
[2017-10-04] MEDS ORDERED: DEXTROSE 50%-WATER 25 GM/50 ML DISP.SYRIN IV PRN ×2 (19:14)
[2017-10-04] MEDS ORDERED: GLUCAGON,HUMAN RECOMB 1 MG INJ IM PRN (19:14)
[2017-10-04] MEDS ORDERED: DEXTROSE 40% GEL 15 GM TUBE PO PRN ×2 (19:14)
[2017-10-04] MEDS ORDERED: HYDRALAZINE HCL INJ/PF 20 MG/1 ML SDV IV PRN (19:16)
[2017-10-04] MEDS ORDERED: IBUPROFEN 600 MG TABLET PO PRN (19:17)
[2017-10-04] MEDS: TRAMADOL HCL 50 MG TABLET PO PRN (19:47)
[2017-10-04] MEDS ORDERED: TRAMADOL HCL 50 MG TABLET PO SCH (22:00)
[2017-10-04] MEDS ORDERED: IBUPROFEN 600 MG TABLET PO SCH (22:00)
--- NOTE | 2017-10-04 22:12 | EKG REPORT ---
SEVERITY:- NORMAL ECG - SINUS RHYTHM : Confirmed by: Yaniv [place] 04-Oct-2017 22:12:13
--- NOTE | 2017-10-04 22:26 | PDOC H&P ---
History of Present Illness Admission Date/PCP: 10/04/17 15:02 OG CHAMPION MD Patient complains of: SHORTNESS OF BREATH History of Present Illness: NICKI ROWE is a 77 year old female who was brought to the ED by EMS for hypoxia and SOB. The patient was recently discharged from [facility] on 10/01/2017 following L hip fracture repair. The home health nurse visited the patient today and when she checked the patient's vital signs, the nurse noted that the SPO2 was in the mid-80%. At the time, the patient was at rest but endorsed feeling short of breath. This prompted the home health nurse to call EMS. Upon arrival to the ED, the patient's VS were BP 135/64 HR 70 RR 20 SPO2 95%2LNC T98.9. CXR revealed a L sided pleural effusion. EKG showed NSR, no evidence of ischemia or infarction. Lab work revealed a mild leukocytosis (WBC 11), HYPOnatremia (Na 136) and an elevated ProBNP (4040). All other lab work was relatively benign. Upon evaluation, the patient is resting comfortably in bed. She is alert and oriented x 3, able to answer all questions appropriately. The patient endorses feeling short of breath and feeling like she "has too much water on [my] body." Peripheral edema is noted in all 4 extremities. Lungs are clear to auscultation. No evidence of cyanosis. The patient's respirations are slow, equal and unlabored. Pulses are palpable in all extremities. S1S2. Cardiology consulted given the elevated BNP but no apparent history of heart disease. Plan to admit to hospitalist service for hypoxia and CHF exacerbation. 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 Psychiatric Medical History: Reports: Depression Hematology: Denies: Anemia, Sickle Cell Disease Past Surgical History Past Surgical History: Reports: Cholecystectomy, Orthopedic Surgery - Right femur ORIF, Tubal Ligation Denies: Amputation, Hysterectomy, Mastectomy, Pacemaker Social History Information Source: Patient Lives with: Family Smoking Status: Former Smoker - quit in her 30s Frequency of Alcohol Use: None Hx Recreational Drug Use: No Drugs: None Hx Prescription Drug Abuse: No - Advance Directive Resuscitation Status: Do Not Resuscitate Family History Family History: Arthritis, COPD, Malignancy, Other - Alzheimer's Parental Family History Reviewed: Yes Children Family History Reviewed: NA Sibling(s) Family History Reviewed.: NA Medication/Allergy Home Medications: Ibuprofen [Motrin 600 mg Tablet] 600 mg PO Q8 10/04/17 Insulin Glargine,Hum.rec.anlog [Lantus Insulin 100 Unit/mL] See Protocol SQ DAILYP PRN 10/04/17 Losartan Potassium [Cozaar 50 mg Tablet] 50 mg PO DAILY 10/04/17 Metoprolol Succinate [Toprol Xl 25 mg Tab.sr] 25 mg PO DAILY 10/04/17 Omeprazole 40 mg PO DAILY 10/04/17 Primidone [Mysoline 50 mg Tablet] 50 mg PO BID 10/04/17 Rivaroxaban [Xarelto 10 mg Tablet] 10 mg PO QPM 10/04/17 Tramadol HCl [Ultram 50 mg Tablet] 50 mg PO BID 10/04/17 Allergies/Adverse Reactions: acetaminophen [From Tylox] Adverse Reaction (Verified 11/12/10 10:26) GI upset oxycodone HCl [From Tylox] Adverse Reaction (Verified 11/12/10 10:26) GI upset bandaids Allergy (Severe, Uncoded 12/11/10 12:30) skin rash adhesives Allergy (Intermediate, Uncoded 01/15/11 09:23) Review of Systems All systems: reviewed and no additional remarkable complaints except as stated Physical Exam Vital Signs: Temp Pulse Resp BP Pulse Ox 98.9 F 20 150/69 H 97 10/04/17 11:43 10/04/17 18:00 10/04/17 15:14 10/04/17 18:00 Intake & Output 10/03/17 10/04/17 10/05/17 06:59 06:59 06:59 Output Total 300 Balance -300 General appearance: PRESENT: no acute distress, obese Eye exam: PRESENT: conjunctiva pink, PERRLA Mouth exam: PRESENT: moist Teeth exam: PRESENT: poor dentation Respiratory exam: PRESENT: symmetrical, unlabored, other - diminished lung sounds in b/l bases Cardiovascular exam: PRESENT: +S1, +S2 Pulses: PRESENT: normal radial pulses, normal dorsalis pedis pul Vascular exam: PRESENT: normal capillary refill GI/Abdominal exam: PRESENT: normal bowel sounds, soft. ABSENT: tenderness Rectal exam: PRESENT: deferred Extremities exam: PRESENT: full ROM, pedal edema, +1 edema - Generalized edema Musculoskeletal exam: PRESENT: ambulatory - With assistance, full ROM Neurological exam: PRESENT: alert, awake, oriented to person, oriented to place , oriented to time, oriented to situation Psychiatric exam: PRESENT: appropriate affect Skin exam: PRESENT: dry, intact, normal color Results Impressions: Chest CT 10/04/17 00:00 IMPRESSION: Bilateral pleural effusions. Osseous findings as described. Chest X-Ray 10/04/17 11:39 IMPRESSION: Confluent density left base -elevated hemidiaphragm versus subpulmonic effusion. Status: Imported from PACS Assessment & Plan - Diagnosis (1) Acute respiratory distress Is this a current diagnosis for this admission?: Yes Plan: Secondary to pulmonary edema as a result of volume overload, possible CHF, lack of mobility following recent hip surgery Generalized +1 edema CXR demonstrates pulmonary edema with left lower lobe pleural effusion CT chest demonstrates bilateral pleural effusions L>R Patient received 40 mg IV Lasix in emergency department Continue daily scheduled IV Lasix Supplemental O2 for SPO2>93% Continue PT/OT (2) Pulmonary edema Qualifiers: Chronicity: acute Qualified Code(s): J81.0 - Acute pulmonary edema Is this a current diagnosis for this admission?: Yes Plan: Secondary to volume overload as evidenced by bilateral pleural effusions, generalized peripheral edema, elevated BNP Plan to consult cardiology given elevated BNP and no history of CHF Will hold off on ECHOcardiogram for now, wait for cardiology recommendations (3) Hypoxemia Is this a current diagnosis for this admission?: Yes Plan: Secondary to #1 and #2 See plan above (4) Intertrochanteric fracture of left femur Qualifiers: Is this a current diagnosis for this admission?: Yes Plan: Recent hospitalization at [facility] following mechanical fall at home 09/29/2017 Csaphalo-medullary nailing of left hip fracture by Dr. Fermin Discharged home on 10/01/2017 with home health Patient now states she would like to go to acute rehab following this admission , states her daughter and are unable to care for her at home Discharge planning aware PRN tylenol, motrin and tramadol for pain relief (5) Hypertension Qualifiers: Hypertension type: essential hypertension Qualified Code(s): I10 - Essential (primary) hypertension Is this a current diagnosis for this admission?: Yes Plan: Patient endorses history of HTN Will resume home antihypertensives IV hydralazine for SBP>170 (6) Diabetes Qualifiers: Diabetes mellitus type: type 2 Diabetes mellitus complication status: without complication Is this a current diagnosis for this admission?: Yes Plan: Patient endorses history of diabetes Accu-Cheks before meals at bedtime Humalog sliding scale coverage - Time Time Spent: 30 to 50 Minutes Medications reviewed and adjusted accordingly: Yes Anticipated discharge: Acute Rehab Within: within 36 hours - Inpatient Certification Based on my medical assessment, after consideration of the patient's comorbidities, presenting symptoms, or acuity I expect that the services needed warrant INPATIENT care.: Yes I certify that my determination is in accordance with my understanding of Medicare's requirements for reasonable and necessary INPATIENT services [42 CFR 412.3e].: Yes Medical Necessity: Risk of Complication if Not Cared For in Hospital - Plan Summary Plan Summary: Admit to hospitalist service. Plan for chest CT. Plan for scheduled diuresis.
[2017-10-05] MEDS: LANSOPRAZOLE 30 MG TAB.RAP.DR PO SCH (05:18)
[2017-10-05] MEDS: TRAMADOL HCL 50 MG TABLET PO PRN ×2 (06:46→21:56)
[2017-10-05 07:13] LABS: HEMOGLOBIN 10.5 g/dL (12.0-15.5); MEAN CORPUSCULAR HEMOGLOBIN 32.6 pg (27.0-33.4); MEAN CORPUSCULAR HGB CONC 33.8 g/dL (32.0-36.0); MEAN CORPUSCULAR VOLUME 96 fl (80-97); PLATELET COUNT 362 10^3/uL (150-450); RED BLOOD COUNT 3.21 10^6/uL (3.72-5.28); RED CELL DISTRIBUTION WIDTH 14.3 % (11.5-14.0); WHITE BLOOD COUNT 11.4 10^3/uL (4.0-10.5)
[2017-10-05 07:31] LABS: ANION GAP 10 (5-19); BLOOD UREA NITROGEN 21 mg/dL (7-20); CALCIUM 7.7 mg/dL (8.4-10.2); CARBON DIOXIDE 27 mmol/L (22-30); CHLORIDE 99 mmol/L (98-107); GLUCOSE 145 mg/dL (75-110); PHOSPHORUS 3.8 mg/dL (2.5-4.5); POTASSIUM 4.2 mmol/L (3.6-5.0)
[2017-10-05] MEDS: ENOXAPARIN SODIUM INJ 30 MG/0.3 ML DISP.SYRIN SUBCUT SCH (09:32)
[2017-10-05] MEDS: FUROSEMIDE INJ/PF 20 MG/2 ML SDV IV SCH (09:32)
[2017-10-05] MEDS: METOPROLOL SUCCINATE 25 MG TAB.SR.24H PO SCH (09:32)
[2017-10-05] MEDS: LOSARTAN POTASSIUM 50 MG TABLET PO SCH (09:32)
[2017-10-05] MEDS: INSULIN LISPRO 100 UNIT/ML 3 ML VIAL SUBCUT PRN ×2 (17:32→21:56)
--- NOTE | 2017-10-05 18:00 | PDOC PROGRESS REPORT ---
Subjective Progress Note for:: 10/05/17 Subjective:: Patient readmitted for respiratory failure. No issues were the left hip. She participated with therapy today. Pain well controlled Reason For Visit: HYPOXIA,ACUTE RESPIRATORY DISTRESS Physical Exam Vital Signs: Temp Pulse Resp BP Pulse Ox 36.7 C 76 17 123/56 L 98 10/05/17 15:38 10/05/17 15:38 10/05/17 15:38 10/05/17 15:38 10/05/17 15:38 Intake & Output 10/04/17 10/05/17 10/06/17 06:59 06:59 06:59 Intake Total 112 400 Output Total 1000 600 Balance -888 -200 Weight 88.3 kg Adult Front & Back Image: 1 - Dressings are dry clean and intact. She is neurovascular intact distally. She has soft cast with negative Homans sign Results Laboratory Results: 10/05/17 06:30 10/05/17 06:30 10/05/17 10/05/17 10/05/17 06:30 06:30 06:30 WBC 11.4 H RBC 3.21 L Hgb 10.5 L Hct 31.0 L MCV 96 MCH 32.6 MCHC 33.8 RDW 14.3 H Plt Count 362 Sodium 136.0 L Potassium 4.2 Chloride 99 Carbon Dioxide 27 Anion Gap 10 BUN 21 H Creatinine 0.79 Est GFR ( Amer) > 60 Est GFR (Non-Af Amer) > 60 Glucose 145 H Calcium 7.7 L Phosphorus 3.8 Magnesium 1.7 TSH 2.79 10/05/17 06:30 NT-Pro-B Natriuret Pep 2580 H Impressions: Chest CT 10/04/17 00:00 IMPRESSION: Bilateral pleural effusions. Osseous findings as described. Chest X-Ray 10/04/17 11:39 IMPRESSION: Confluent density left base -elevated hemidiaphragm versus subpulmonic effusion. Status: Image reviewed by me Assessment & Plan - Diagnosis (1) Intertrochanteric fracture of left femur Qualifiers: Encounter type: subsequent encounter Fracture type: closed Fracture alignment: displaced Fracture healing: with routine healing Qualified Code(s ): S72.142D - Displaced intertrochanteric fracture of left femur, subsequent encounter for closed fracture with routine healing Is this a current diagnosis for this admission?: Yes Plan: Patient is less than a week out from cephalo-medullary nailing of her left intertrochanteric hip fracture. Patient is 50% weightbearing with the assistance of a walker. Agree with Lovenox for DVT prophylaxis. Continue physical therapy. If she is still here at 10-14 days from the date of her surgery I will remove her guillermina if not she can follow-up in the office 10-14 days from her surgery to remove her guillermina. Does do daily dressing changes as needed for her dressings.
--- NOTE | 2017-10-05 22:06 | PDOC PROGRESS REPORT ---
<HUMBERTO GAMBINO Dameon - Last Filed: 10/05/17 22:05> Subjective Progress Note for:: 10/05/17 Subjective:: 77 y.o. F with a PMH of HTN and DM presents with shortness of breath, hypoxia and dyspnea. The patient was discharged from [facility] on 10/01/2017 following repair of a L hip fracture. The patient was seen this morning on rounds. She is resting comfortably in bed on supplemental oxygen via nasal cannula. The patient states that she feels ' much better' today, but she still experiences episodes of SOB, particularly with activity. Upon assessment. lungs are clear to auscultation, mildly diminished in bilateral lower lobes. S1S2. Palpable pulses in all extremities. Trace peripheral edema in lower extremities. BNP has greatly improved today from 4040 -->2580. Plan to continue daily diuresis. Awaiting cardiology consult, appreciate their recommendations. Reason For Visit: HYPOXIA,ACUTE RESPIRATORY DISTRESS Physical Exam Vital Signs: Temp Pulse Resp BP Pulse Ox 97.8 F 84 18 132/46 H 98 10/05/17 21:16 10/05/17 21:16 10/05/17 21:16 10/05/17 21:16 10/05/17 21:16 Intake & Output 10/04/17 10/05/17 10/06/17 06:59 06:59 06:59 Intake Total 112 400 Output Total 1000 800 Balance -888 -400 Weight 88.3 kg General appearance: PRESENT: no acute distress, well-developed Head exam: PRESENT: atraumatic Eye exam: PRESENT: conjunctiva pink, PERRLA Mouth exam: PRESENT: moist Teeth exam: PRESENT: poor dentation Neck exam: PRESENT: full ROM. ABSENT: JVD Respiratory exam: PRESENT: clear to auscultation ramila, decreased breath sounds - bilateral lower lobes, symmetrical, unlabored Cardiovascular exam: PRESENT: +S1, +S2 Pulses: PRESENT: normal radial pulses, normal dorsalis pedis pul Vascular exam: PRESENT: normal capillary refill GI/Abdominal exam: PRESENT: normal bowel sounds, soft. ABSENT: distended, tenderness Rectal exam: PRESENT: deferred Extremities exam: PRESENT: pedal edema, +1 edema. ABSENT: full ROM Musculoskeletal exam: PRESENT: ambulatory - with assistance. ABSENT: full ROM Neurological exam: PRESENT: alert, awake, oriented to person, oriented to place , oriented to time, oriented to situation Psychiatric exam: PRESENT: appropriate affect Skin exam: PRESENT: dry, intact, normal color, warm Results Laboratory Results: 10/05/17 06:30 10/05/17 06:30 10/05/17 10/05/17 10/05/17 06:30 06:30 06:30 WBC 11.4 H RBC 3.21 L Hgb 10.5 L Hct 31.0 L MCV 96 MCH 32.6 MCHC 33.8 RDW 14.3 H Plt Count 362 Sodium 136.0 L Potassium 4.2 Chloride 99 Carbon Dioxide 27 Anion Gap 10 BUN 21 H Creatinine 0.79 Est GFR ( Amer) > 60 Est GFR (Non-Af Amer) > 60 Glucose 145 H Calcium 7.7 L Phosphorus 3.8 Magnesium 1.7 TSH 2.79 10/05/17 06:30 NT-Pro-B Natriuret Pep 2580 H Impressions: Chest CT 10/04/17 00:00 IMPRESSION: Bilateral pleural effusions. Osseous findings as described. Chest X-Ray 10/04/17 11:39 IMPRESSION: Confluent density left base -elevated hemidiaphragm versus subpulmonic effusion. Status: Imported from PACS Assessment & Plan - Diagnosis (1) Acute respiratory distress Is this a current diagnosis for this admission?: Yes Plan: Secondary to pulmonary edema as a result of volume overload, possible CHF, lack of mobility following recent hip surgery Generalized +1 edema CXR demonstrates pulmonary edema with left lower lobe pleural effusion CT chest demonstrates bilateral pleural effusions L>R Patient received 40 mg IV Lasix in emergency department Continue daily scheduled IV Lasix Supplemental O2 for SPO2>93% Continue PT/OT (2) Pulmonary edema QualifierTitle: Chronicity: acute Qualified Code(s): J81.0 - Acute pulmonary edema Is this a current diagnosis for this admission?: Yes Plan: Secondary to volume overload as evidenced by bilateral pleural effusions, generalized peripheral edema, elevated BNP Plan to consult cardiology given elevated BNP and no history of CHF Will hold off on ECHOcardiogram for now, wait for cardiology recommendations Daily diuresis with Lasix until respiratory sttus and overall volume status improves (3) Hypoxemia Is this a current diagnosis for this admission?: Yes Plan: Secondary to #1 and #2 See plan above (4) Intertrochanteric fracture of left femur QualifierTitle: Encounter type: subsequent encounter Fracture type: closed Fracture alignment: displaced Fracture healing: with routine healing Qualified Code(s): S72.142D - Displaced intertrochanteric fracture of left femur, subsequent encounter for closed fracture with routine healing Is this a current diagnosis for this admission?: Yes Plan: Recent hospitalization at [facility] following mechanical fall at home 09/29/2017 Cephalo-medullary nailing of left hip fracture by Dr. Fermin Discharged home on 10/01/2017 with home health Patient now states she would like to go to acute rehab following this admission , states her daughter and are unable to care for her at home PT/OT evaluation and treat Discharge planning aware PRN tylenol and tramadol for pain relief (5) Hypertension QualifierTitle: Hypertension type: essential hypertension Qualified Code( s): I10 - Essential (primary) hypertension Is this a current diagnosis for this admission?: Yes Plan: Patient endorses history of HTN Will resume home antihypertensives IV hydralazine for SBP>170 (6) Diabetes QualifierTitle: Diabetes mellitus type: type 2 Diabetes mellitus complication status: without complication Is this a current diagnosis for this admission?: Yes Plan: Patient endorses history of diabetes Accu-Cheks before meals at bedtime Humalog sliding scale coverage - Time Time Spent with patient: 15-24 minutes Medications reviewed and adjusted accordingly: Yes Anticipated discharge: Acute Rehab Within: within 48 hours - Inpatient Certification Based on my medical assessment, after consideration of the patient's comorbidities, presenting symptoms, or acuity I expect that the services needed warrant INPATIENT care.: Yes I certify that my determination is in accordance with my understanding of Medicare's requirements for reasonable and necessary INPATIENT services [42 CFR 412.3e].: Yes Medical Necessity: Risk of Complication if Not Cared For in Hospital - Plan Summary Plan Summary: CONTINUE DAILY DIURESIS. PT/OT. AWAITING CARDIOLOGY CONSULT. <JADEN REDDING M - Last Filed: 10/24/17 05:43> Subjective Reason For Visit: HYPOXIA,ACUTE RESPIRATORY DISTRESS Physical Exam Vital Signs: Temp Pulse Resp BP Pulse Ox 98.0 F 75 16 151/63 H 100 10/07/17 19:09 10/07/17 19:09 10/07/17 19:09 10/07/17 19:09 10/07/17 19:09 Results Laboratory Results: 10/06/17 07:50 10/07/17 11:40 10/05/17 10/06/17 10/07/17 06:30 07:50 11:40 NT-Pro-B Natriuret Pep 2580 H 1490 H 1060 H Impressions: Chest CT 10/04/17 00:00 IMPRESSION: Bilateral pleural effusions. Osseous findings as described. Chest X-Ray 10/06/17 00:00 IMPRESSION: The previously described confluent density in the left lung base appears improved. Remaining lung kamara are clear. Other findings as noted above Elbow X-Ray 10/06/17 00:00 IMPRESSION: Fracture of the olecranon. Head CT 10/07/17 00:00 IMPRESSION: CHRONIC CHANGES OF ATROPHY AND MICROVASCULAR ISCHEMIA. NO ACUTE PROCESS. EVIDENCE OF ACUTE STROKE: NO. Provider Note Provider Note: I have discussed this patient in detail with CRISTHIAN Gambino. I am in agreement with her evaluation and plans.
[2017-10-06] MEDS: LANSOPRAZOLE 30 MG TAB.RAP.DR PO SCH (05:04)
[2017-10-06 08:15] LABS: HEMOGLOBIN 10.4 g/dL (12.0-15.5); MEAN CORPUSCULAR HEMOGLOBIN 32.5 pg (27.0-33.4); MEAN CORPUSCULAR HGB CONC 33.5 g/dL (32.0-36.0); MEAN CORPUSCULAR VOLUME 97 fl (80-97); PLATELET COUNT 400 10^3/uL (150-450); RED CELL DISTRIBUTION WIDTH 14.2 % (11.5-14.0); WHITE BLOOD COUNT 11.1 10^3/uL (4.0-10.5)
[2017-10-06 08:39] LABS: ANION GAP 9 (5-19); BLOOD UREA NITROGEN 20 mg/dL (7-20); CALCIUM 8.1 mg/dL (8.4-10.2); CARBON DIOXIDE 29 mmol/L (22-30); CHLORIDE 99 mmol/L (98-107); GLUCOSE 123 mg/dL (75-110); PHOSPHORUS 3.4 mg/dL (2.5-4.5); POTASSIUM 4.1 mmol/L (3.6-5.0); SODIUM 137.3 mmol/L (137-145)
[2017-10-06] MEDS: LOSARTAN POTASSIUM 50 MG TABLET PO SCH (09:34)
[2017-10-06] MEDS: FUROSEMIDE INJ/PF 20 MG/2 ML SDV IV SCH (09:34)
[2017-10-06] MEDS: ENOXAPARIN SODIUM INJ 30 MG/0.3 ML DISP.SYRIN SUBCUT SCH (09:34)
[2017-10-06] MEDS: METOPROLOL SUCCINATE 25 MG TAB.SR.24H PO SCH (09:35)
[2017-10-06] MEDS: TRAMADOL HCL 50 MG TABLET PO PRN (10:18)
--- NOTE | 2017-10-06 13:43 | RADIOLOGY REPORT (SQ) ---
EXAM DESCRIPTION: ELBOW LEFT AP/LATERAL COMPLETED DATE/TIME: 10/06/2017 1:29 pm REASON FOR STUDY: L ELBOW TRAUMA, EVAL FOR FXR OR DISPLACEMENT COMPARISON: 09/27/2017 NUMBER OF VIEWS: Two views. TECHNIQUE: AP and lateral radiographic images acquired of the left elbow. LIMITATIONS: Overlying support apparatus. FINDINGS: MINERALIZATION: Osteopenia. BONES: Fracture of the tip of the olecranon with mild superior displacement. JOINT: Joint effusion. SOFT TISSUES: No soft tissue swelling. No foreign body. OTHER: No other significant finding. IMPRESSION: Fracture of the olecranon. TECHNICAL DOCUMENTATION: JOB ID: [id number] [employer]- All Rights Reserved Reading location - IP/workstation name: [email or web address]
--- NOTE | 2017-10-06 14:07 | RADIOLOGY REPORT (SQ) ---
EXAM DESCRIPTION: CHEST SINGLE VIEW COMPLETED DATE/TIME: 10/06/2017 1:29 pm REASON FOR STUDY: EVAL L PLEURAL EFFUSION COMPARISON: 10/04/2017 EXAM PARAMETERS: NUMBER OF VIEWS: One view. TECHNIQUE: Single frontal radiographic view of the chest acquired. RADIATION DOSE: NA LIMITATIONS: None. FINDINGS: LUNGS AND PLEURA: The previously described confluent density in the left lung base appears improved. Remaining lung kamara are clear. MEDIASTINUM AND HILAR STRUCTURES: No masses. Contour normal. HEART AND VASCULAR STRUCTURES: Cardiac silhouette is partially obscured due to adjacent densities but appears unchanged. BONES: No acute findings. HARDWARE: None in the chest. OTHER: No other significant finding. IMPRESSION: The previously described confluent density in the left lung base appears improved. Antoinette ining lung kamara are clear. Other findings as noted above TECHNICAL DOCUMENTATION: JOB ID: [id number] [employer]- All Rights Reserved Reading location - IP/workstation name: [email or web address]
--- NOTE | 2017-10-06 16:59 | PDOC PROGRESS REPORT ---
<HUMBERTO GAMBINO Dameon - Last Filed: 10/06/17 16:41> Subjective Progress Note for:: 10/06/17 Subjective:: 77 y.o. F with a PMH of HTN and DM presents with shortness of breath, hypoxia and dyspnea. The patient was discharged from [facility] on 10/01/2017 following repair of a L hip fracture. The patient was seen this morning on rounds. She is resting comfortably in bed on supplemental oxygen via nasal cannula. The patient states that she feels ' much better' today, but she still experiences episodes of SOB, particularly with activity. Upon assessment. lungs are clear to auscultation, mildly diminished in bilateral lower lobes. S1S2. Palpable pulses in all extremities. Minimal peripheral edema in lower extremities. BNP has greatly improved today from 4040 -->2580-->1490. The patient was evaluated by cardiology this morning. Echocardiogram performed this a.m., results pending. Nursing staff reports that patient fell this morning while getting up from bedside commode. Left elbow appears bruised and swollen. Patient states it is too painful to fully extend. Denies pain with flexion. X-ray reveals small olecranon fracture with superior displacement of the tip. Ortho aware. Reason For Visit: HYPOXIA,ACUTE RESPIRATORY DISTRESS Physical Exam Vital Signs: Temp Pulse Resp BP Pulse Ox 97.7 F 82 16 138/60 H 95 10/06/17 12:00 10/06/17 14:00 10/06/17 12:00 10/06/17 12:00 10/06/17 08:14 Intake & Output 10/05/17 10/06/17 10/07/17 06:59 06:59 06:59 Intake Total 112 600 0 Output Total 1000 1125 500 Balance -888 -525 -500 Weight 88.3 kg 89.7 kg General appearance: PRESENT: no acute distress, well-developed, well-nourished Head exam: PRESENT: atraumatic Eye exam: PRESENT: conjunctiva pink, PERRLA Mouth exam: PRESENT: moist Teeth exam: PRESENT: poor dentation Neck exam: PRESENT: full ROM Respiratory exam: PRESENT: clear to auscultation ramila, symmetrical, unlabored Cardiovascular exam: PRESENT: +S1, +S2 Pulses: PRESENT: normal radial pulses, normal dorsalis pedis pul Vascular exam: PRESENT: normal capillary refill GI/Abdominal exam: PRESENT: normal bowel sounds, soft. ABSENT: tenderness Rectal exam: PRESENT: deferred Extremities exam: PRESENT: pedal edema - Trace pedal edema. ABSENT: full ROM Musculoskeletal exam: PRESENT: ambulatory - With assistance, full ROM Neurological exam: PRESENT: alert, awake, oriented to person, oriented to place , oriented to time, oriented to situation Psychiatric exam: PRESENT: appropriate affect Skin exam: PRESENT: dry, intact, normal color, warm Results Laboratory Results: 10/06/17 07:50 10/06/17 07:50 10/06/17 10/06/17 07:50 07:50 WBC 11.1 H RBC 3.20 L Hgb 10.4 L Hct 31.0 L MCV 97 MCH 32.5 MCHC 33.5 RDW 14.2 H Plt Count 400 Sodium 137.3 Potassium 4.1 Chloride 99 Carbon Dioxide 29 Anion Gap 9 BUN 20 Creatinine 0.86 Est GFR ( Amer) > 60 Est GFR (Non-Af Amer) > 60 Glucose 123 H Calcium 8.1 L Phosphorus 3.4 Magnesium 1.8 10/05/17 10/06/17 06:30 07:50 NT-Pro-B Natriuret Pep 2580 H 1490 H Impressions: Chest CT 10/04/17 00:00 IMPRESSION: Bilateral pleural effusions. Osseous findings as described. Chest X-Ray 10/06/17 00:00 IMPRESSION: The previously described confluent density in the left lung base appears improved. Remaining lung kamara are clear. Other findings as noted above Elbow X-Ray 10/06/17 00:00 IMPRESSION: Fracture of the olecranon. Status: Imported from PACS Assessment & Plan - Diagnosis (1) Acute respiratory distress Is this a current diagnosis for this admission?: Yes Plan: Secondary to pulmonary edema as a result of volume overload, possible CHF, lack of mobility following recent hip surgery Generalized edema improving BNP improving 4040 -->2580-->1490 CT chest demonstrates bilateral pleural effusions L>R CXR demonstrates pulmonary edema with left lower lobe pleural effusion Repeat CXR today shows improvement of pulmonary edema Patient received 40 mg IV Lasix in emergency department Continue daily scheduled IV Lasix, increased dose from 20 mg to 40 mg daily Supplemental O2 for SPO2>93% Continue PT/OT (2) Pulmonary edema QualifierTitle: Chronicity: acute Qualified Code(s): J81.0 - Acute pulmonary edema Is this a current diagnosis for this admission?: Yes Plan: Improving Secondary to volume overload as evidenced by bilateral pleural effusions, generalized peripheral edema, elevated BNP Repeat CXR today demonstrates improvement of pleural effusions Consulted cardiology given elevated BNP and no history of CHF Echocardiogram completed this a.m., results pending Patient still complains of SOB even when repositioning in the bed. Increase daily Lasix from 20 mg to 40 mg IV (3) Hypoxemia Is this a current diagnosis for this admission?: Yes Plan: Secondary to #1 and #2 See plan above (4) Intertrochanteric fracture of left femur QualifierTitle: Encounter type: subsequent encounter Fracture type: closed Fracture alignment: displaced Fracture healing: with routine healing Qualified Code(s): S72.142D - Displaced intertrochanteric fracture of left femur, subsequent encounter for closed fracture with routine healing Is this a current diagnosis for this admission?: Yes Plan: Recent hospitalization at [facility] following mechanical fall at home 09/29/2017 Cephalo-medullary nailing of left hip fracture by Dr. Fermin Discharged home on 10/01/2017 with home health Patient now states she would like to go to acute rehab following this admission , states her daughter and are unable to care for her at home PT/OT evaluation and treat Discharge planning aware PRN tylenol, Oxy-IR and IV Morphine for pain relief (5) Hypertension QualifierTitle: Hypertension type: essential hypertension Qualified Code( s): I10 - Essential (primary) hypertension Is this a current diagnosis for this admission?: Yes Plan: Patient endorses history of HTN Will resume home antihypertensives IV hydralazine for SBP>170 (6) Diabetes QualifierTitle: Diabetes mellitus type: type 2 Diabetes mellitus complication status: without complication Is this a current diagnosis for this admission?: Yes Plan: Patient endorses history of diabetes Accu-Cheks before meals at bedtime Humalog sliding scale coverage (7) Elbow fracture QualifierTitle: Encounter type: initial encounter Fracture type: closed Laterality: left Qualified Code(s): S42.402A - Unspecified fracture of lower end of left humerus, initial encounter for closed fracture Is this a current diagnosis for this admission?: Yes Plan: Patient reports she fell getting up from bedside commode Left elbow hit the ground Bruising and swelling to left elbow, partial range of motion, unable to fully extend X-ray reveals olecranon fracture Dr. Fermin was notified Consulted Dr. Tavares, awaiting recommendations - Time Time Spent with patient: 15-24 minutes Medications reviewed and adjusted accordingly: Yes Anticipated discharge: Home - Inpatient Certification Based on my medical assessment, after consideration of the patient's comorbidities, presenting symptoms, or acuity I expect that the services needed warrant INPATIENT care.: Yes I certify that my determination is in accordance with my understanding of Medicare's requirements for reasonable and necessary INPATIENT services [42 CFR 412.3e].: Yes Medical Necessity: Risk of Complication if Not Cared For in Hospital - Plan Summary Plan Summary: C/S ORTHO FOR L OLECRANON FXR. INCREASE LASIX DUE TO PERSISTENT SOB. AWAITING DISCHARGE/TRANSFER TO ACUTE REHAB <JADEN REDDING - Last Filed: 10/18/17 15:40> Subjective Reason For Visit: HYPOXIA,ACUTE RESPIRATORY DISTRESS Physical Exam Vital Signs: Temp Pulse Resp BP Pulse Ox 98.0 F 75 16 151/63 H 100 10/07/17 19:09 10/07/17 19:09 10/07/17 19:09 10/07/17 19:09 10/07/17 19:09 Results Laboratory Results: 10/06/17 07:50 10/07/17 11:40 10/05/17 10/06/17 10/07/17 06:30 07:50 11:40 NT-Pro-B Natriuret Pep 2580 H 1490 H 1060 H Impressions: Chest CT 10/04/17 00:00 IMPRESSION: Bilateral pleural effusions. Osseous findings as described. Chest X-Ray 10/06/17 00:00 IMPRESSION: The previously described confluent density in the left lung base appears improved. Remaining lung kamara are clear. Other findings as noted above Elbow X-Ray 10/06/17 00:00 IMPRESSION: Fracture of the olecranon. Head CT 10/07/17 00:00 IMPRESSION: CHRONIC CHANGES OF ATROPHY AND MICROVASCULAR ISCHEMIA. NO ACUTE PROCESS. EVIDENCE OF ACUTE STROKE: NO. Provider Note Provider Note: I have discussed the patient in detail with CRISTHIAN Gambino. I am in agreement with her evaluation and plan.
--- NOTE | 2017-10-06 17:53 | PDOC CONSULTATION ---
Consultation Consult Date: 10/06/17 Consult reason:: Left elbow pain History of Present Illness Admission Date/PCP: 10/04/17 15:02 OG CHAMPION MD History of Present Illness: NICKI ROWE is a 77 year old female Patient is a 77-year-old white female status post open reduction internal fixation of an intertrochanteric femur fracture. Patient was attempting to get out of bed today and fell onto her left elbow with subsequent pain and functional disability. Orthopedics is consulted for evaluation and management 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 Psychiatric Medical History: Reports: Depression Hematology: Denies: Anemia, Sickle Cell Disease Past Surgical History Past Surgical History: Reports: Cholecystectomy, Orthopedic Surgery - Right femur ORIF, Tubal Ligation Denies: Amputation, Hysterectomy, Mastectomy, Pacemaker Social History Information Source: Patient, [facility] Records Lives with: Family Smoking Status: Former Smoker - quit in her 30s Frequency of Alcohol Use: None Hx Recreational Drug Use: No Drugs: None Hx Prescription Drug Abuse: No - Advance Directive Resuscitation Status: Do Not Resuscitate Family History Family History: Arthritis, COPD, Malignancy, Other - Alzheimer's Parental Family History Reviewed: No Children Family History Reviewed: No Sibling(s) Family History Reviewed.: No Medication/Allergy Home Medications: Ibuprofen [Motrin 600 mg Tablet] 600 mg PO Q8 10/04/17 Insulin Glargine,Hum.rec.anlog [Lantus Insulin 100 Unit/mL] See Protocol SQ DAILYP PRN 10/04/17 Losartan Potassium [Cozaar 50 mg Tablet] 50 mg PO DAILY 10/04/17 Metoprolol Succinate [Toprol Xl 25 mg Tab.sr] 25 mg PO DAILY 10/04/17 Omeprazole 40 mg PO DAILY 10/04/17 Primidone [Mysoline 50 mg Tablet] 50 mg PO BID 10/04/17 Rivaroxaban [Xarelto 10 mg Tablet] 10 mg PO QPM 10/04/17 Tramadol HCl [Ultram 50 mg Tablet] 50 mg PO BID 10/04/17 Allergies/Adverse Reactions: acetaminophen [From Tylox] Adverse Reaction (Verified 11/12/10 10:26) GI upset oxycodone HCl [From Tylox] Adverse Reaction (Verified 11/12/10 10:26) GI upset bandaids Allergy (Severe, Uncoded 12/11/10 12:30) skin rash adhesives Allergy (Intermediate, Uncoded 01/15/11 09:23) Review of Systems All systems: as per H Physical Exam Vital Signs: Temp Pulse Resp BP Pulse Ox 36.7 C 79 16 143/61 H 96 10/06/17 16:00 10/06/17 16:00 10/06/17 16:00 10/06/17 16:00 10/06/17 16:00 Intake & Output 10/05/17 10/06/17 10/07/17 06:59 06:59 06:59 Intake Total 112 600 0 Output Total 1000 1125 500 Balance -888 -525 -500 Weight 88.3 kg 89.7 kg Physical Exam: Patient said overweight middle-aged white female lying comfortably in a hospital bed. She has minimal complaints at this point. General appearance: PRESENT: no acute distress, mild distress Head exam: PRESENT: normocephalic Respiratory exam: PRESENT: unlabored Cardiovascular exam: PRESENT: RRR Pulses: PRESENT: normal radial pulses Vascular exam: PRESENT: normal capillary refill GI/Abdominal exam: PRESENT: soft Rectal exam: PRESENT: deferred Extremities exam: PRESENT: other - Left elbow is examined. There is venous access in the antecubital fossa. Over the dorsum of the elbow there is a considerable amount of hematoma/ecchymosis. Passive range of motion is approximately 10-120. There is no instability. There is tenderness to palpation over the dorsal aspect of the olecranon. The patient is able to extend the elbow to approximately 20 when gravity is not involved. When she attempts to straighten the elbow against gravity she asked possibly 40. There is no skin abrasions. Distal neurovascular examination is intact. Neurological exam: PRESENT: alert, awake, oriented to person, oriented to place , oriented to time, oriented to situation, CN II-XII grossly intact. ABSENT: motor sensory deficit Psychiatric exam: PRESENT: appropriate affect, normal mood. ABSENT: homicidal ideation, suicidal ideation Results Laboratory Results: 10/06/17 07:50 10/06/17 07:50 10/06/17 10/06/17 07:50 07:50 WBC 11.1 H RBC 3.20 L Hgb 10.4 L Hct 31.0 L MCV 97 MCH 32.5 MCHC 33.5 RDW 14.2 H Plt Count 400 Sodium 137.3 Potassium 4.1 Chloride 99 Carbon Dioxide 29 Anion Gap 9 BUN 20 Creatinine 0.86 Est GFR ( Amer) > 60 Est GFR (Non-Af Amer) > 60 Glucose 123 H Calcium 8.1 L Phosphorus 3.4 Magnesium 1.8 10/05/17 10/06/17 06:30 07:50 NT-Pro-B Natriuret Pep 2580 H 1490 H Impressions: Chest CT 10/04/17 00:00 IMPRESSION: Bilateral pleural effusions. Osseous findings as described. Chest X-Ray 10/06/17 00:00 IMPRESSION: The previously described confluent density in the left lung base appears improved. Remaining lung kamara are clear. Other findings as noted above Elbow X-Ray 10/06/17 00:00 IMPRESSION: Fracture of the olecranon. Status: Image reviewed by me - X-rays are available from the time of admission of the left elbow and from today. Films from the time of admission demonstrated a small and easy apathy of the triceps tendon at its insertion into the olecranon. Films from today demonstrated an avulsion of that insertion of the olecranon. Assessment & Plan - Diagnosis (1) Olecranon fracture Qualifiers: Encounter type: initial encounter Fracture type: closed Laterality: left Qualified Code(s): S52.022A - Displaced fracture of olecranon process without intraarticular extension of left ulna, initial encounter for closed fracture Is this a current diagnosis for this admission?: Yes Plan: 77-year-old white female status post a fall onto her left elbow and a significant change in anatomy from the time of admission suggesting an avulsion fracture of the dorsal aspect of the olecranon and potentially disruption of the extensor mechanism. The fact that she is able to extend the elbow much further without gravity and against gravity suggest that potentially a significant part of the extensor mechanism has been disrupted. I have requested an MRI scan to further evaluate its integrity. - Time Time Spent: 50 to 70 Minutes Anticipated discharge: Other Within: Other
[2017-10-06] MEDS: INSULIN LISPRO 100 UNIT/ML 3 ML VIAL SUBCUT PRN (18:32)
[2017-10-06] MEDS ORDERED: OXYCODONE HCL IR 5 MG TABLET PO PRN (19:13)
[2017-10-06] MEDS ORDERED: MORPHINE SULFATE 10 MG/ML INJ IV PRN (19:13)
[2017-10-06] MEDS ORDERED: FUROSEMIDE INJ/PF 20 MG/2 ML SDV IV ONE ×2 (19:15→22:45)
--- NOTE | 2017-10-06 20:23 | XCELERA REPORT ---
[address] [address] Transthoracic Echocardiogram Report Name: NICKI ROWE Age: 77 yrs Gender: Female : 1940 Patient Status: Inpatient Patient Location: [address] [place] [address] Study Date: 10/06/2017 10:27 AM Height: 66 in Weight: 194 lb BSA: 2.0 m2 Procedure: A two-dimensional transthoracic echocardiogram with color flow Doppler was performed. Study Quality: Technically suboptimal. The study was technically limited with all images being suboptimal in quality. Reason For Study: elevated BNP History: CHF. Ordering Physician: MYLENE FRANCE Performed By: Betty Thomas Interpretation Summary The left ventricle is normal in size. There is normal left ventricular wall thickness. LV EF is > than 60% Doppler measurements suggest impaired left ventricular relaxation, which is associated with grade I/IV or mild diastolic dysfunction The left ventricular wall motion is normal. There is no thrombus. The left atrial size is normal. There is no evidence of mitral valve prolapse. There is no mitral valve stenosis. There is no mitral regurgitation noted. There is no aortic valve stenosis No aortic regurgitation is present. There is no tricuspid stenosis. There is moderate pulmonary hypertension by echo Probably mild TR.RVSP is 58 mm of Hg , with RA meam of 10. There is no pericardial effusion. MMode/2D Measurements & Calculations RVDd: 2.8 cm LVIDd: 4.1 cm FS: 28.2 % Ao root diam: 2.7 cm IVSd: 0.91 cm LVIDs: 2.9 cm EDV(Teich): 72.9 ml Ao root area: 5.6 cm2 LVPWd: 1.0 cm ESV(Teich): 32.8 ml LA dimension: 3.2 cm EF(Teich): 55.1 % Doppler Measurements & Calculations MV E max farrukh: MV P1/2t max farrukh: Ao V2 max: LV V1 max P.1 cm/sec 96.4 cm/sec 159.8 cm/sec 6.5 mmHg MV A max farrukh: MV P1/2t: 66.8 msec Ao max PG: LV V1 max: 124.6 cm/sec MVA(P1/2t): 3.3 cm2 10.2 mmHg 127.7 cm/sec MV E/A: 0.85 MV dec slope: 422.9 cm/sec2 MV dec time: 0.22 sec PA V2 max: TR max farrukh: MV P1/2t-pr_phl: 112.2 cm/sec 345.4 cm/sec 66.8 msec PA max P.0 mmHgTR max P.7 mmHg Left Ventricle The left ventricle is normal in size. There is normal left ventricular wall thickness. LV EF is > than 60%. Left ventricular systolic function is normal. Doppler measurements suggest impaired left ventricular relaxation, which is associated with grade I/IV or mild diastolic dysfunction. The left ventricular wall motion is normal. There is no thrombus. Right Ventricle The right ventricle is normal in size and function. Atria The right atrium is normal. The left atrial size is normal. Mitral Valve There is no evidence of mitral valve prolapse. There is no vegetation seen on the mitral valve. There is no mitral valve stenosis. There is no mitral regurgitation noted. Aortic Valve There is no aortic valvular vegetation. There is no aortic valve stenosis. There is no LVOT obstruction. No aortic regurgitation is present. Tricuspid Valve There is no tricuspid stenosis. There is moderate pulmonary hypertension by echo. Probably mild TR.RVSP is 58 mm of Hg , with RA meam of 10. Pulmonic Valve There is no pulmonic valvular stenosis. There is no pulmonic valvular regurgitation. Great Vessels The aortic root is normal size. Effusions There is no pericardial effusion. : MYLENE FRANCE > Mylene France
[2017-10-07] MEDS: LANSOPRAZOLE 30 MG TAB.RAP.DR PO SCH (05:32)
--- NOTE | 2017-10-07 06:33 | PDOC PROGRESS REPORT ---
Subjective Progress Note for:: 10/07/17 Reason For Visit: HYPOXIA,ACUTE RESPIRATORY DISTRESS 77-year-old white female with a suspected partial disruption of her left elbow extensor mechanism. An MRI scan which the patient refused. She states "I will just try and see how it goes" Physical Exam Vital Signs: Temp Pulse Resp BP Pulse Ox 36.8 C 89 14 136/51 H 95 10/07/17 03:56 10/07/17 03:56 10/07/17 03:56 10/07/17 03:56 10/07/17 03:56 Intake & Output 10/05/17 10/06/17 10/07/17 06:59 06:59 06:59 Intake Total 112 600 750 Output Total 1000 1125 1100 Balance -047 -792 -350 Weight 88.3 kg 89.7 kg 88.4 kg Physical Exam: Physical examination is unchanged from yesterday Results Laboratory Results: 10/06/17 07:50 10/06/17 07:50 10/06/17 10/06/17 07:50 07:50 WBC 11.1 H RBC 3.20 L Hgb 10.4 L Hct 31.0 L MCV 97 MCH 32.5 MCHC 33.5 RDW 14.2 H Plt Count 400 Sodium 137.3 Potassium 4.1 Chloride 99 Carbon Dioxide 29 Anion Gap 9 BUN 20 Creatinine 0.86 Est GFR ( Amer) > 60 Est GFR (Non-Af Amer) > 60 Glucose 123 H Calcium 8.1 L Phosphorus 3.4 Magnesium 1.8 10/05/17 10/06/17 06:30 07:50 NT-Pro-B Natriuret Pep 2580 H 1490 H Impressions: Chest CT 10/04/17 00:00 IMPRESSION: Bilateral pleural effusions. Osseous findings as described. Chest X-Ray 10/06/17 00:00 IMPRESSION: The previously described confluent density in the left lung base appears improved. Remaining lung kamara are clear. Other findings as noted above Elbow X-Ray 10/06/17 00:00 IMPRESSION: Fracture of the olecranon. Status: Imported from PACS Assessment & Plan - Diagnosis (1) Olecranon fracture Qualifiers: Encounter type: initial encounter Fracture type: closed Laterality: left Qualified Code(s): S52.022A - Displaced fracture of olecranon process without intraarticular extension of left ulna, initial encounter for closed fracture Is this a current diagnosis for this admission?: Yes Plan: Plan will be for a course of observation per the patient's request - Time Time Spent with patient: 15-24 minutes Anticipated discharge: SNF Within: when bed available
[2017-10-07] MEDS: LOSARTAN POTASSIUM 50 MG TABLET PO SCH (09:18)
[2017-10-07] MEDS: ENOXAPARIN SODIUM INJ 30 MG/0.3 ML DISP.SYRIN SUBCUT SCH (09:19)
[2017-10-07] MEDS: METOPROLOL SUCCINATE 25 MG TAB.SR.24H PO SCH (09:19)
[2017-10-07] MEDS ORDERED: FUROSEMIDE INJ/PF 20 MG/2 ML SDV IV SCH (10:00)
[2017-10-07 12:44] LABS: ANION GAP 9 (5-19); BLOOD UREA NITROGEN 16 mg/dL (7-20); CARBON DIOXIDE 30 mmol/L (22-30); CHLORIDE 96 mmol/L (98-107); GLUCOSE 154 mg/dL (75-110); PHOSPHORUS 3.3 mg/dL (2.5-4.5); POTASSIUM 3.6 mmol/L (3.6-5.0); SODIUM 134.9 mmol/L (137-145)
[2017-10-07] MEDS: INSULIN LISPRO 100 UNIT/ML 3 ML VIAL SUBCUT PRN (12:56)
--- NOTE | 2017-10-07 14:18 | PDOC TRANSFER SUMMARY ---
Addendum entered and electronically signed by HUMBERTO GAMBINO NP 10/07/17 17 :30: General Admission Date/PCP: 10/04/17 15:02 OG CHAMPION MD Admission Date: 10/04/17 Transfer Date: 10/07/17 Resuscitation Status: Do Not Resuscitate - Transfer Diagnosis (1) Acute respiratory distress Is this a current diagnosis for this admission?: Yes (2) Pulmonary edema Is this a current diagnosis for this admission?: Yes (3) Hypoxemia Is this a current diagnosis for this admission?: Yes (4) Intertrochanteric fracture of left femur Is this a current diagnosis for this admission?: Yes (5) Hypertension Is this a current diagnosis for this admission?: Yes (6) Diabetes Is this a current diagnosis for this admission?: Yes (7) Elbow fracture Is this a current diagnosis for this admission?: Yes (8) Delirium Is this a current diagnosis for this admission?: Yes Diagnosis Summary: PATIENT EXPERIENCING INTERMITTENT EPISODES OF DELIRIUM. SHE IS ABLE TO ANSWER ALL ORIENTATION QUESTIONS APPROPRIATELY, BUT WILL INFREQUENTLY TELL NURSING STAFF ABOUT VISUAL HALLUCINATIONS SHE IS HAVING. THE PATIENT DOES NOT MAKE AN ATTEMPT TO GET OUT OF BED. SHE IS NOT A RISK TO HERSELF. SHE IS PLEASANTLY CONFUSED. HEAD CT PREFORMED, RESULTS ONLY SHOW CHRONIC MICROVASCULAR CHANGES. ENCOURAGE DAY/NIGHT CUES AND AMBULATION TOLERATED. - Transfer Medications Home Medications: Insulin Glargine,Hum.rec.anlog [Lantus Insulin 100 Unit/mL] See Protocol SQ DAILYP PRN 10/04/17 Losartan Potassium [Cozaar 50 mg Tablet] 50 mg PO DAILY 10/04/17 Metoprolol Succinate [Toprol Xl 25 mg Tab.sr] 25 mg PO DAILY 10/04/17 Omeprazole 40 mg PO DAILY 10/04/17 Primidone [Mysoline 50 mg Tablet] 50 mg PO BID 10/04/17 Rivaroxaban [Xarelto 10 mg Tablet] 10 mg PO QPM 10/04/17 Transfer Medications: Current Medications Acetaminophen (Tylenol 325 Mg Tablet) 975 mg PO Q6HP PRN PRN Reason: FOR PAIN OR TEMP Stop: 11/03/17 14:25 Dextrose (Dextrose Inj 50% Syringe (25 Gm/50 Ml)) 12.5 gm IV PRN PRN; Protocol PRN Reason: FOR BG 50-69 IN ALERT PATIENT Stop: 11/03/17 19:13 Dextrose (Dextrose Inj 50% Syringe (25 Gm/50 Ml)) 25 gm IV PRN PRN; Protocol PRN Reason: PER PROTOCOL Stop: 11/03/17 19:13 Enoxaparin Sodium (Lovenox Inj 30 Mg/0.3 Ml Disp.Syrin) 30 mg SUBCUT DAILY [facility] Stop: 11/04/17 09:59 Last Admin: 10/07/17 09:19 Dose: 30 mg Furosemide (Lasix 20 Mg Tablet) 20 mg PO DAILY [facility] Stop: 11/07/17 09:59 Glucagon (Glucagen Inj 1 Mg Vial) 1 mg IM PRN PRN; Protocol PRN Reason: Evaluate for BG < 70 Stop: 11/03/17 19:13 Glucose (Glutose 40% Gel 15 Gm Tube) 15 gm PO PRN PRN; Protocol PRN Reason: FOR BG 50-69 IN ALERT PATIENT Stop: 11/03/17 19:13 Glucose (Glutose 40% Gel 15 Gm Tube) 30 gm PO PRN PRN; Protocol PRN Reason: FOR BG < 50 IN ALERT PATIENT Stop: 11/03/17 19:13 Hydralazine HCl (Apresoline Inj/Pf 20 Mg/1 Ml Sdv) 10 mg IV Q4HP PRN PRN Reason: Give For Sbp > 170 Stop: 11/03/17 19:15 Insulin Human Lispro (Humalog Insulin 100 Unit/1 Ml 3 Ml Vial) 0 - 12 unit SUBCUT ACHSP PRN; Protocol PRN Reason: PER PROTOCOL Stop: 11/03/17 19:13 Last Admin: 10/07/17 12:56 Dose: 2 units Lansoprazole (Prevacid 30 Mg Odt Tablet) 30 mg PO Q6AM [facility] Stop: 11/04/17 05:59 Last Admin: 10/07/17 05:32 Dose: 30 mg Losartan Potassium (Cozaar 50 Mg Tablet) 50 mg PO Q12A [facility] Stop: 11/06/17 21:59 Metoprolol Succinate (Toprol Xl 25 Mg Tab.Sr) 25 mg PO DAILY [facility] Stop: 11/04/17 09:59 Last Admin: 10/07/17 09:19 Dose: 25 mg Morphine Sulfate (Morphine 10 Mg/Ml Inj) 2 mg IV Q4HP PRN PRN Reason: FOR PAIN Stop: 10/13/17 19:12 Ondansetron HCl (Zofran Odt 4 Mg Tablet) 4 mg PO Q6HP PRN PRN Reason: FOR NAUSEA/VOMITING Stop: 11/03/17 14:25 Oxycodone HCl (Oxy-Ir 5 Mg Tablet) 5 mg PO Q6HP PRN PRN Reason: FOR PAIN Stop: 10/13/17 19:12 Last Admin: 10/07/17 01:23 Dose: 5 mg Sodium Chloride (Saline Flush 2.5 Ml Monoject Prefil Syrin) 2.5 ml IV Q8 [facility] Stop: 11/03/17 21:59 Last Admin: 10/07/17 14:03 Dose: Not Given - Allergies Allergies/Adverse Reactions: acetaminophen [From Tylox] Adverse Reaction (Verified 11/12/10 10:26) GI upset oxycodone HCl [From Tylox] Adverse Reaction (Verified 11/12/10 10:26) GI upset bandaids Allergy (Severe, Uncoded 12/11/10 12:30) skin rash adhesives Allergy (Intermediate, Uncoded 01/15/11 09:23) - Diet/Activity Discharge Diet: As Tolerated Addendum entered and electronically signed by HUMBERTO GAMBINO NP 10/07/17 14 :52: General Admission Date/PCP: 10/04/17 15:02 OG CHAMPION MD Admission Date: 10/04/17 Transfer Date: 10/07/17 Resuscitation Status: Do Not Resuscitate - Transfer Diagnosis (1) Acute respiratory distress Is this a current diagnosis for this admission?: Yes Diagnosis Summary: PATIENT CURRENTLY REQUIRES 2L O2 VIA NASAL CANNULA. PRIOR TO HOSPITALIZATION, THE PATIENT DID NOT REQUIRE O2. THE PATIENT WILL LIKELY BE ABLE TO WEAN OFF OF THE NASAL CANNULA WITH CONTINUED DIURESIS AND DAILY PHYSICAL THERAPY. ONCE THE PATIENT IS REGAINS MOBILITY HER RESPIRATORY STATUS AND OVERALL STRENGTH SHOULD GREATLY IMPROVE. (2) Pulmonary edema Is this a current diagnosis for this admission?: Yes (3) Hypoxemia Is this a current diagnosis for this admission?: Yes (4) Intertrochanteric fracture of left femur Is this a current diagnosis for this admission?: Yes (5) Hypertension Is this a current diagnosis for this admission?: Yes (6) Diabetes Is this a current diagnosis for this admission?: Yes (7) Elbow fracture Is this a current diagnosis for this admission?: Yes - Transfer Medications Home Medications: Insulin Glargine,Hum.rec.anlog [Lantus Insulin 100 Unit/mL] See Protocol SQ DAILYP PRN 10/04/17 Losartan Potassium [Cozaar 50 mg Tablet] 50 mg PO DAILY 10/04/17 Metoprolol Succinate [Toprol Xl 25 mg Tab.sr] 25 mg PO DAILY 10/04/17 Omeprazole 40 mg PO DAILY 10/04/17 Primidone [Mysoline 50 mg Tablet] 50 mg PO BID 10/04/17 Rivaroxaban [Xarelto 10 mg Tablet] 10 mg PO QPM 10/04/17 Transfer Medications: Current Medications Acetaminophen (Tylenol 325 Mg Tablet) 975 mg PO Q6HP PRN PRN Reason: FOR PAIN OR TEMP Stop: 11/03/17 14:25 Dextrose (Dextrose Inj 50% Syringe (25 Gm/50 Ml)) 12.5 gm IV PRN PRN; Protocol PRN Reason: FOR BG 50-69 IN ALERT PATIENT Stop: 11/03/17 19:13 Dextrose (Dextrose Inj 50% Syringe (25 Gm/50 Ml)) 25 gm IV PRN PRN; Protocol PRN Reason: PER PROTOCOL Stop: 11/03/17 19:13 Enoxaparin Sodium (Lovenox Inj 30 Mg/0.3 Ml Disp.Syrin) 30 mg SUBCUT DAILY [facility] Stop: 11/04/17 09:59 Last Admin: 10/07/17 09:19 Dose: 30 mg Furosemide (Lasix 20 Mg Tablet) 20 mg PO DAILY [facility] Stop: 11/07/17 09:59 Glucagon (Glucagen Inj 1 Mg Vial) 1 mg IM PRN PRN; Protocol PRN Reason: Evaluate for BG < 70 Stop: 11/03/17 19:13 Glucose (Glutose 40% Gel 15 Gm Tube) 15 gm PO PRN PRN; Protocol PRN Reason: FOR BG 50-69 IN ALERT PATIENT Stop: 11/03/17 19:13 Glucose (Glutose 40% Gel 15 Gm Tube) 30 gm PO PRN PRN; Protocol PRN Reason: FOR BG < 50 IN ALERT PATIENT Stop: 11/03/17 19:13 Hydralazine HCl (Apresoline Inj/Pf 20 Mg/1 Ml Sdv) 10 mg IV Q4HP PRN PRN Reason: Give For Sbp > 170 Stop: 11/03/17 19:15 Insulin Human Lispro (Humalog Insulin 100 Unit/1 Ml 3 Ml Vial) 0 - 12 unit SUBCUT ACHSP PRN; Protocol PRN Reason: PER PROTOCOL Stop: 11/03/17 19:13 Last Admin: 10/07/17 12:56 Dose: 2 units Lansoprazole (Prevacid 30 Mg Odt Tablet) 30 mg PO Q6AM [facility] Stop: 11/04/17 05:59 Last Admin: 10/07/17 05:32 Dose: 30 mg Losartan Potassium (Cozaar 50 Mg Tablet) 50 mg PO Q12A [facility] Stop: 11/06/17 21:59 Metoprolol Succinate (Toprol Xl 25 Mg Tab.Sr) 25 mg PO DAILY [facility] Stop: 11/04/17 09:59 Last Admin: 10/07/17 09:19 Dose: 25 mg Morphine Sulfate (Morphine 10 Mg/Ml Inj) 2 mg IV Q4HP PRN PRN Reason: FOR PAIN Stop: 10/13/17 19:12 Ondansetron HCl (Zofran Odt 4 Mg Tablet) 4 mg PO Q6HP PRN PRN Reason: FOR NAUSEA/VOMITING Stop: 11/03/17 14:25 Oxycodone HCl (Oxy-Ir 5 Mg Tablet) 5 mg PO Q6HP PRN PRN Reason: FOR PAIN Stop: 10/13/17 19:12 Last Admin: 10/07/17 01:23 Dose: 5 mg Sodium Chloride (Saline Flush 2.5 Ml Monoject Prefil Syrin) 2.5 ml IV Q8 [facility] Stop: 11/03/17 21:59 Last Admin: 10/07/17 14:03 Dose: Not Given - Allergies Allergies/Adverse Reactions: acetaminophen [From Tylox] Adverse Reaction (Verified 11/12/10 10:26) GI upset oxycodone HCl [From Tylox] Adverse Reaction (Verified 11/12/10 10:26) GI upset bandaids Allergy (Severe, Uncoded 12/11/10 12:30) skin rash adhesives Allergy (Intermediate, Uncoded 01/15/11 09:23) - Diet/Activity Discharge Diet: As Tolerated Original Note: <HUMBERTO GAMBINO - Last Filed: 10/07/17 17:28> General Admission Date/PCP: 10/04/17 15:02 OG CHAMPION MD Admission Date: 10/04/17 Transfer Date: 10/07/17 Resuscitation Status: Do Not Resuscitate - Transfer Diagnosis (1) Acute respiratory distress Is this a current diagnosis for this admission?: Yes (2) Pulmonary edema Is this a current diagnosis for this admission?: Yes (3) Hypoxemia Is this a current diagnosis for this admission?: Yes (4) Intertrochanteric fracture of left femur Is this a current diagnosis for this admission?: Yes (5) Hypertension Is this a current diagnosis for this admission?: Yes (6) Diabetes Is this a current diagnosis for this admission?: Yes (7) Elbow fracture Is this a current diagnosis for this admission?: Yes - Transfer Medications Home Medications: Insulin Glargine,Hum.rec.anlog [Lantus Insulin 100 Unit/mL] See Protocol SQ DAILYP PRN 10/04/17 Losartan Potassium [Cozaar 50 mg Tablet] 50 mg PO DAILY 10/04/17 Metoprolol Succinate [Toprol Xl 25 mg Tab.sr] 25 mg PO DAILY 10/04/17 Omeprazole 40 mg PO DAILY 10/04/17 Primidone [Mysoline 50 mg Tablet] 50 mg PO BID 10/04/17 Rivaroxaban [Xarelto 10 mg Tablet] 10 mg PO QPM 10/04/17 Transfer Medications: Current Medications Acetaminophen (Tylenol 325 Mg Tablet) 975 mg PO Q6HP PRN PRN Reason: FOR PAIN OR TEMP Stop: 11/03/17 14:25 Dextrose (Dextrose Inj 50% Syringe (25 Gm/50 Ml)) 12.5 gm IV PRN PRN; Protocol PRN Reason: FOR BG 50-69 IN ALERT PATIENT Stop: 11/03/17 19:13 Dextrose (Dextrose Inj 50% Syringe (25 Gm/50 Ml)) 25 gm IV PRN PRN; Protocol PRN Reason: PER PROTOCOL Stop: 11/03/17 19:13 Enoxaparin Sodium (Lovenox Inj 30 Mg/0.3 Ml Disp.Syrin) 30 mg SUBCUT DAILY [facility] Stop: 11/04/17 09:59 Last Admin: 10/07/17 09:19 Dose: 30 mg Furosemide (Lasix 20 Mg Tablet) 20 mg PO DAILY [facility] Stop: 11/07/17 09:59 Glucagon (Glucagen Inj 1 Mg Vial) 1 mg IM PRN PRN; Protocol PRN Reason: Evaluate for BG < 70 Stop: 11/03/17 19:13 Glucose (Glutose 40% Gel 15 Gm Tube) 15 gm PO PRN PRN; Protocol PRN Reason: FOR BG 50-69 IN ALERT PATIENT Stop: 11/03/17 19:13 Glucose (Glutose 40% Gel 15 Gm Tube) 30 gm PO PRN PRN; Protocol PRN Reason: FOR BG < 50 IN ALERT PATIENT Stop: 11/03/17 19:13 Hydralazine HCl (Apresoline Inj/Pf 20 Mg/1 Ml Sdv) 10 mg IV Q4HP PRN PRN Reason: Give For Sbp > 170 Stop: 11/03/17 19:15 Insulin Human Lispro (Humalog Insulin 100 Unit/1 Ml 3 Ml Vial) 0 - 12 unit SUBCUT ACHSP PRN; Protocol PRN Reason: PER PROTOCOL Stop: 11/03/17 19:13 Last Admin: 10/07/17 12:56 Dose: 2 units Lansoprazole (Prevacid 30 Mg Odt Tablet) 30 mg PO Q6AM [facility] Stop: 11/04/17 05:59 Last Admin: 10/07/17 05:32 Dose: 30 mg Losartan Potassium (Cozaar 50 Mg Tablet) 50 mg PO Q12A [facility] Stop: 11/06/17 21:59 Metoprolol Succinate (Toprol Xl 25 Mg Tab.Sr) 25 mg PO DAILY [facility] Stop: 11/04/17 09:59 Last Admin: 10/07/17 09:19 Dose: 25 mg Morphine Sulfate (Morphine 10 Mg/Ml Inj) 2 mg IV Q4HP PRN PRN Reason: FOR PAIN Stop: 10/13/17 19:12 Ondansetron HCl (Zofran Odt 4 Mg Tablet) 4 mg PO Q6HP PRN PRN Reason: FOR NAUSEA/VOMITING Stop: 11/03/17 14:25 Oxycodone HCl (Oxy-Ir 5 Mg Tablet) 5 mg PO Q6HP PRN PRN Reason: FOR PAIN Stop: 10/13/17 19:12 Last Admin: 10/07/17 01:23 Dose: 5 mg Sodium Chloride (Saline Flush 2.5 Ml Monoject Prefil Syrin) 2.5 ml IV Q8 [facility] Stop: 11/03/17 21:59 Last Admin: 10/07/17 05:32 Dose: 2.5 ml - Allergies Allergies/Adverse Reactions: acetaminophen [From Tylox] Adverse Reaction (Verified 11/12/10 10:26) GI upset bandaids Allergy (Severe, Uncoded 12/11/10 12:30) skin rash adhesives Allergy (Intermediate, Uncoded 01/15/11 09:23) - Diet/Activity Discharge Diet: As Tolerated Hospital Course Hospital Course: NICKI ROWE is a 77 year old female who was brought to the ED by EMS for hypoxia and SOB. The patient was recently discharged from [facility] on 10/01/2017 following L hip fracture repair. The home health nurse visited the patient and when she checked the patient's vital signs, the nurse noted that the SPO2 was in the mid-80%. At the time, the patient was at rest but endorsed feeling short of breath. This prompted the home health nurse to call EMS. Upon arrival to the ED, the patient's VS were BP 135/64 HR 70 RR 20 SPO2 95%2LNC T98.9. CXR revealed a L sided pleural effusion. CT chest demonstrates bilateral pleural effusions L>R. The patient was admitted to the hospitalist service for acute respiratory distress secondary to pulmonary edema as a result of volume overload, possible CHF, and lack of mobility following recent hip surgery. Initial BNP 4040. The patient required supplemental oxygen via nasal cannula for hypoxia and SOB with exertion. Cardiology was consulted. The patient was diuresed in the ED with IV lasix, which was continued as a daily dose of Lasix once she was admitted. ECHOcardiogram was completed, showed moderate pulmonary hypertension. Per instructions from Dr. Thomas, the patient's Cozaar was increased from 50mg PO daily to BID. Repeat CXR on hospital day #3 showed improvement of pulmonary edema. Plan to continue daily PO lasix post-discharge. The patient will require a follow up visit with Dr. Thomas for an outpatient stress test and sleep study. On 10/06/2017 Nursing staff reported that patient fell while getting up from bedside commode. Left elbow is bruised and swollen. Patient stated it is painful to fully extend. Denies pain with flexion. X-ray reveals small olecranon fracture with superior displacement of the tip. Ortho aware, Dr. Tavares came to evaluate the patient and recommended an MRI. The patient refused the MRI and states 'it doesn't hurt that bad, let's see how things go.' Ortho states the patient does not require a splint or sling. If the patient complains of persistent elbow pain, she can follow up in the outpatient clinic with Dr. Tavares or Dr. Fermin. Physical Exam Vital Signs: Temp Pulse Resp BP Pulse Ox 98.6 F 81 20 140/66 H 95 10/07/17 07:17 10/07/17 07:17 10/07/17 07:17 10/07/17 07:17 10/07/17 07:17 Intake & Output 10/06/17 10/07/17 10/08/17 06:59 06:59 06:59 Intake Total 600 750 442 Output Total 1125 1100 675 Balance -525 -350 -233 Weight 89.7 kg 88.4 kg Results Laboratory Results: 10/06/17 07:50 10/07/17 11:40 10/07/17 11:40 Sodium 134.9 L Potassium 3.6 Chloride 96 L Carbon Dioxide 30 Anion Gap 9 BUN 16 Creatinine 0.79 Est GFR ( Amer) > 60 Est GFR (Non-Af Amer) > 60 Glucose 154 H Calcium 8.0 L Phosphorus 3.3 Magnesium 1.6 10/05/17 10/06/17 10/07/17 06:30 07:50 11:40 NT-Pro-B Natriuret Pep 2580 H 1490 H 1060 H Impressions: Chest CT 10/04/17 00:00 IMPRESSION: Bilateral pleural effusions. Osseous findings as described. Chest X-Ray 10/06/17 00:00 IMPRESSION: The previously described confluent density in the left lung base appears improved. Remaining lung kamara are clear. Other findings as noted above Elbow X-Ray 10/06/17 00:00 IMPRESSION: Fracture of the olecranon. Status: Imported from PACS Plan Discharge Plan: Transfer to [facility]. Follow up with Cardiology in 2 weeks. Time Spent: Greater than 30 Minutes <JADEN REDDING - Last Filed: 10/18/17 15:45> General Admission Date/PCP: 10/04/17 15:02 OG CHAMPION MD Physical Exam Vital Signs: Temp Pulse Resp BP Pulse Ox 98.0 F 75 16 151/63 H 100 10/07/17 19:09 10/07/17 19:09 10/07/17 19:09 10/07/17 19:09 10/07/17 19:09 Results Laboratory Results: 10/06/17 07:50 10/07/17 11:40 10/05/17 10/06/17 10/07/17 06:30 07:50 11:40 NT-Pro-B Natriuret Pep 2580 H 1490 H 1060 H Impressions: Chest CT 10/04/17 00:00 IMPRESSION: Bilateral pleural effusions. Osseous findings as described. Chest X-Ray 10/06/17 00:00 IMPRESSION: The previously described confluent density in the left lung base appears improved. Remaining lung kamara are clear. Other findings as noted above Elbow X-Ray 10/06/17 00:00 IMPRESSION: Fracture of the olecranon. Head CT 10/07/17 00:00 IMPRESSION: CHRONIC CHANGES OF ATROPHY AND MICROVASCULAR ISCHEMIA. NO ACUTE PROCESS. EVIDENCE OF ACUTE STROKE: NO. Provider Note Provider Note: I have discussed this patient with CRISTHIAN Gambino. I am in agreement with her evaluation and plan.
--- NOTE | 2017-10-07 14:56 | Physician Advisory Note ---
Physician Advisor ProgressNote .: Pursuant to the plan for Lizet Ty, I have reviewed the medical record for this patient. Physician Advisor Statement: Nice documentation of pt's mod pulm HTN. ECHO shows grade 1 diastolic dysfunction. Attending documents possible CHF. Please consider documenting, if you agree: 1. "Acute diastolic CHF causing Acute Pulmonary Edema" 2. Documentation states pt had dx.s of "resp distress" & "hypoxemia", but descriptions/exams this reviewer has seen state pt was in no distress (at least when on O2...). - Did pt have "Acute Hypoxemic Resp Failure, evidenced by " (evidence of acute resp distress/increased work of breathing evidenced in association w/ acute hypoxemia), or was this pt's resp distress & acute hypoxemia at different times, or did pt not actually have acute resp distress? (see below) Thanks! CK Reference: Acute Respiratory Failure = (A) Documented difficulty breathing + (B) Hypoxemia* - Hypoxemia alone is not sufficient for the dx, although certainly indicates one should consider it. A. Difficulty breathing: Pt should show signs of resp distress (even if mild ), such as use of accessory muscles/retractions, tripoding, inability to speak full sentences, central cyanosis, tachypnea, and can also be supported by decreased level of consciousness. - Stating pt has SOB/coughing/wheezing (sx), when PE states NAD or gives no mention of any of above signs, is not typically sufficient to support this part of the dx. B. Acute Hypoxemia: PO2 <60mmHg or O2 sat <88-91% on RA or P/F ratio <300.
--- NOTE | 2017-10-07 17:18 | RADIOLOGY REPORT (SQ) ---
EXAM DESCRIPTION: CT HEAD WITHOUT COMPLETED DATE/TIME: 10/07/2017 5:07 pm REASON FOR STUDY: ACUTE CONFUSION COMPARISON: 02/12/2011. TECHNIQUE: Axial images acquired through the brain without intravenous contrast. Images reviewed wi th bone, brain and subdural windows. Additional sagittal and coronal reconstructions were generated. Images stored on PACS. All CT scanners at this facility use dose modulation, iterative reconstruction, and/or weight based d osing when appropriate to reduce radiation dose to as low as reasonably achievable (ALARA). [facility]: Dose Right [facility]: CareDose [facility]: Dose Right [facility]: Teradose 4D [facility]: Smart miDrive RADIATION DOSE: CT Rad equipment meets quality standard of care and radiation dose reduction techniq ues were employed. CTDIvol: 53.2 mGy. DLP: 1044 mGy-cm.mGy. LIMITATIONS: None. FINDINGS: VENTRICLES: Prominent. CEREBRUM: No masses. No hemorrhage. No midline shift. Areas of low density in the white matter mos t likely due to chronic micro-vascular ischemic change. No evidence for acute infarction. CEREBELLUM: No masses. No hemorrhage. No alteration of density. No evidence for acute infarction. EXTRAAXIAL SPACES: Age-related involutional change. No fluid collections. No masses. ORBITS AND GLOBE: No intra- or extraconal masses. Normal contour of globe without masses. CALVARIUM: No fracture. PARANASAL SINUSES: No fluid or mucosal thickening. SOFT TISSUES: No mass or hematoma. OTHER: No other significant finding. IMPRESSION: CHRONIC CHANGES OF ATROPHY AND MICROVASCULAR ISCHEMIA. NO ACUTE PROCESS. EVIDENCE OF ACUTE STROKE: NO. TECHNICAL DOCUMENTATION: JOB ID: [id number] Quality ID # [id number]: Final reports with documentation of one or more dose reduction techniques (e.g., Au tomated exposure control, adjustment of the mA and/or kV according to patient size, use of iterative reconstruction technique) 2010 [employer]- All Rights Reserved Reading location - IP/workstation name: [email or web address]
[2017-10-07] MEDS ORDERED: LOSARTAN POTASSIUM 50 MG TABLET PO SCH ×2 (18:00→22:00)
[2017-10-07 20:25] VITALS: BP 151/63
[2017-10-08] MEDS ORDERED: FUROSEMIDE 20 MG TABLET PO SCH (10:00)
== END 2017-10-07 21:30 | DRG 189 ==
LOC: EEVIPCON 11:37 → ER 11:37 → EH 15:02 → 3S 18:49
PROVIDERS: ADMIT Internal Medicine; ATTEND Internal Medicine
DX: J81.0 Acute pulmonary edema (principal); E87.1 Hypo-osmolality and hyponatremia; I11.0 Hypertensive heart disease with heart failure; I50.9 Heart failure, unspecified; E11.9 Type 2 diabetes mellitus without complications; R06.03 Acute respiratory distress; R09.02 Hypoxemia; E87.70 Fluid overload, unspecified; F32.9 Major depressive disorder, single episode, unspecified; I27.20 Pulmonary hypertension, unspecified; M13.862 Other specified arthritis, left knee; S72.142D Displaced intertrochanteric fracture of left femur, subsequent encounter for closed fracture with routine healing; W19.XXXD Unspecified fall, subsequent encounter; S52.022A Displaced fracture of olecranon process without intraarticular extension of left ulna, initial encounter for closed fracture; W18.30XA Fall on same level, unspecified, initial encounter; Y92.230 Patient room in hospital as the place of occurrence of the external cause; Z98.51 Tubal ligation status; Z88.6 Allergy status to analgesic agent; Z90.49 Acquired absence of other specified parts of digestive tract; Z87.891 Personal history of nicotine dependence; R41.0 Disorientation, unspecified; Z66 Do not resuscitate; Z79.4 Long term (current) use of insulin
CPT/HCPCS: 36415; 70450; 71045; 71250; 80048; 80053; 81001; 82550; 82553; 82962; 83735; 83880; 84100; 84443; 84484; 85025; 85027; 93005; 93010; 93306; 96374; 99285; G8978-GP; G8979-GP; G8987-GO; G8988-GO; J1650; J1815; J1940; J3490